=== PATIENT | male | born 1955 | race Caucasian/White ===

== ENCOUNTER 2020-12-25 09:04 | Outpatient (CLI) | payer MEDICARE, OTHER, SELFPAY ==
--- NOTE | ~2020-12-25 | CT_ITS ---
EXAMINATION: CT lung screening DATE: 12/25/2020 09:53 INDICATION: Personal history of nicotine dependence, prior smoker with 78 pack year history TECHNIQUE: Computed tomography (CT) of the chest was performed without intravenous contrast. The dose -length product (DLP) was 166.42 mGy-cm. 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 COMPARISON: None FINDINGS: There is moderate emphysema. No suspicious pulmonary nodules are identified. The lungs are free of acute opacities. There is no pleural effusion or pneumothorax. No pathologically enlarged tho racic lymph nodes are identified. The heart size is normal. Calcified coronary artery atherosclerosis is noted. Cysts of the liver measure up to 10 mm. There is a 2.5 cm cyst of the left kidney. There i s moderate thoracic spondylosis. IMPRESSION: 1. Lung-RADS category 1: Negative. Continue annual screening with noncontrast low-dose chest CT in 12 months. Reviewed, dictated and finalized at location A. IMPRESSION: 1. Lung-RADS category 1: Negative. Continue annual screening with noncontrast l ow-dose chest CT in 12 months.
--- NOTE | 2020-12-25 10:52 | ECHO_ITS ---
Patient Info Name: Kody Eden Age: 65 years : 1955 Gender: Male Ht: 72 in Wt: 168 lbs BSA: 1.97 m2 HR: 115 bpm BP: 130 / 79 mmHg Technical Quality: Fair Exam Date: 12/25/2020 11:03 AM Exam Location: [facility] Patient Status: Outpatient Admit Date: 12/25/2020 Staff Ordering Physician: Timothy Queen APRN Tomato Paste Maker: ENID Attending Provider: Timothy Queen APRN Referring Physician: Bret CRAWFORD; Exam Type: CA echo doppler color flow Study Info Indications R06.02 - Shortness of breath Complete two-dimensional, color flow and Doppler transthoracic echocardiogram is performed. Summary 1. Complete two-dimensional, color flow and Doppler transthoracic echocardiogram is performed. 2. Left ventricular systolic function is preserved, estimated at 50-55%. 3. Left ventricular chamber dimension is normal. 4. There is mildly increased left ventricular wall thickness. 5. The left ventricular diastolic function is grade I diastolic dysfunction. 6. E/e' 25 is elevated. 7. Left atrial chamber dimension is mildly enlarged. 8. There is moderate aortic valve sclerosis. 9. The mitral valve has moderately calcified annulus. 10. No pulmonary hypertension, estimated pulmonary arterial systolic pressure is 17 mmHg. Left Ventricle E/e' 25 is elevated. Left ventricular systolic function is preserved, estimated at 50-55%. Left ventricular chamber dimension is normal. There is mildly increased left ventricular wall thickness. The left ventricular diastolic function is grade I diastolic dysfunction. Right Ventricle Right ventricular chamber dimension is normal. Right ventricular systolic function is normal. Left Atria Left atrial chamber dimension is mildly enlarged. Right Atria Right atrial chamber dimension is normal. Aortic Valve The aortic valve is trileaflet. There is moderate aortic valve sclerosis. There is no aortic valve stenosis. There is no aortic valve regurgitation. Pulmonic Valve There is no pulmonic regurgitation. Mitral Valve The mitral valve has moderately calcified annulus. There is no mitral valve stenosis. There is no mitral valve regurgitation. Tricuspid Valve There is no tricuspid valve regurgitation. No pulmonary hypertension, estimated pulmonary arterial systolic pressure is 17 mmHg. Pericardium/Pleural There is no pericardial effusion. Inferior Vena Cava Normal inferior vena cava with >50% collapse upon inspiration consistent with normal right atrial pressure, 5 mmHg. Aorta The aortic root size at the sinus of Valsalva is normal. Left Ventricular Outflow Tract Name Value Normal LVOT 2D LVOT Diameter 2.2 cm LVOT Doppler LVOT Peak Gradient 7 mmHg LVOT Mean Gradient 4 mmHg LVOT VTI 26 cm LVOT VTI/AV VTI Ratio 1.3 LVOT Stroke Volume 99 ml LVOT CO 20.7 l/min LVOT CI 10.5 l/min/m2 Mitral Valve
== END 2020-12-25 09:05 | disposition home or self-care (01) ==
PROVIDERS: PCP Family Medicine; Visit Provider Nurse Practitioner Family
DX: Z12.2 Encounter for screening for malignant neoplasm of respiratory organs (principal); Z87.891 Personal history of nicotine dependence; R06.02 Shortness of breath; I35.1 Nonrheumatic aortic (valve) insufficiency
CPT/HCPCS: 71271; 93306

== ENCOUNTER 2020-12-29 08:35 | Inpatient (IN) | payer MEDICARE, OTHER, SELFPAY ==
[2020-12-29] VITALS (20 sets, daily range): BP systolic 104–137; BP diastolic 64–86; PULSE 62–128; RESP 16–32; TEMP 35.7–37; O2SAT 92–100; BMI 21.9
--- NOTE | ~2020-12-29 | XR_ITS ---
XR chest 1V portable DATE: 01/01/2021 05:46 INDICATION: Shortness of breath TECHNIQUE: Portable AP views on 01/01/2021 at 0535 hours COMPARISON: 12/29/2020 AP and lateral chest FINDINGS: Bilateral hyperinflation and relative flattening the diaphragm, consistent with COPD. No pulmonary consolidation. Probable nipple shadow overlying the left lower lung. No pleural effusion or pulmonary vascular congestion or pneumothorax. Normal heart size. Aortic calcification and mild tortuosity. No hilar or mediastinal enlargement is e vident. IMPRESSION: COPD Reviewed, dictated and finalized at location A. IMPRESSION: COPD
--- NOTE | ~2020-12-29 | US_ITS ---
EXAMINATION: US venous doppler [facility] DATE: 12/29/2020 09:59 INDICATION: Bilateral lower limb swelling TECHNIQUE: Hahn scale images without and with compression and Doppler images of the bilateral lower e xtremity veins were obtained. COMPARISON: None FINDINGS: The right common femoral vein, profunda femoral vein, femoral vein, popliteal vein, peroneal trunk, p osterior tibial veins, and greater saphenous vein are patent. The left common femoral vein, profunda femoral vein, femoral vein, popliteal vein, peroneal trunk, po sterior tibial veins, and greater saphenous vein are patent. IMPRESSION: 1. Patent bilateral lower extremity veins. No evidence of deep venous thrombosis. Reviewed, dictated and finalized at location B. IMPRESSION: 1. Patent bilateral lower extremity veins. No evidence of deep venous thrombosi s.
--- NOTE | ~2020-12-29 | XR_ITS ---
XR chest 2V DATE: 12/29/2020 09:19 INDICATION: Shortness of breath TECHNIQUE: AP and lateral views COMPARISON: 12/25/2020 CT lung screening 05/19/2017 two-view chest FINDINGS: There is bilateral hyperinflation and flattening of the diaphragm, consistent with COPD. Heart size is within normal limits. Rizwana B-lines are identified in the mid and lower lung zones, not present on 05/19/2017, suggesting possible pulmonary interstitial edema. No pulmonary consolidation is evident. The central pulmonary arteries appear prominent and taper rath er quickly, suggesting pulmonary hypertension. No hilar or mediastinal mass lesion or adenopathy is e vident. No pneumothorax. No pleural effusion is identified. IMPRESSION: COPD Bilateral Rizwana B-lines, fetus in possible pulmonary interstitial edema Reviewed, dictated and finalized at location A.
--- NOTE | 2020-12-29 09:02 | ECG_ITS ---
Measurements Intervals Foster Rate: 116 P: 79 NM: 134 QRS: 23 QRSD: 88 T: 86 QT: 344 QTc: 478 Interpretive Statements SINUS TACHYCARDIA ATRIAL COUPLET, ATRIAL AND VENTRICULAR PREMATURE COMPLEXES LOW QRS VOLTAGE IN PRECORDIAL LEADS CANNOT RULE OUT SEPTAL INFARCT, AGE INDETERMINATE BORDERLINE ST-T WAVE ABNORMALITY- HIGH LATERAL LEADS ABNORMAL ECG Electronically Signed On 12-29-2020 9:52:52 CDT by Reji Reina D.O.
[2020-12-29 09:30] LABS: Basophils Percent Auto 0.5 % (0.2-1.2); Eosinophils Absolute Auto 0.1 K/mm3 (0-0.3); Eosinophils Percent Auto 0.8 % (0-4.4); Hematocrit 39.9 % (42.0-52.0); Immature Granulocyte Absolute 0.04 K/mm3 (0.00-0.031); Immature Granulocyte Percent A 0.5 % (0-0.5); Lymphocytes Absolute Auto 0.75 K/mm3 (0.9-3.2); Lymphocytes Percent Auto 9.6 % (18.3-44.2); Mean Corpuscular HGB Conc 32.6 g/dl (32-36); Mean Corpuscular Hemoglobin 33.2 pg (26-34); Mean Corpuscular Volume 101.8 fl (80-100); Mean Platelet Volume 9.6 fl (7.4-10.4); Monocytes Absolute Auto 0.5 K/mm3 (0.1-0.6); Monocytes Percent Auto 6.6 % (2.6-8.5); Neutrophils Absolute Auto 6.4 K/mm3 (1.3-6.7); Platelet Count Result 226 k/mm3 (150-375); Red Blood Count 3.92 M/mm3 (4.6-6.20); Red Cell Distribution Width 14.7 % (11.5-14.5); White Blood Count 7.9 K/mm3 (4.5-10.0)
[2020-12-29 09:48] LABS: INR 0.9; Partial Thromboplastin Time 26.8 SECONDS (22.3-36.8); Prothrombin Time 11.6 Seconds (11.1-14.7)
[2020-12-29 09:49] LABS: Anion Gap 6 mmol/L (8-16); Blood Urea Nitrogen 16 mg/dL (9-20); Calcium 8.8 mg/dL (8.4-10.2); Carbon Dioxide 28 mmol/L (22-30); Chloride 97 mmol/L (98-107); Estimated CRCL calculation 63 ml/min; Estimated Glomerular Filt Rate > 60; Glucose 130 mg/dL (65-110); Potassium 3.4 mmol/L (3.4-5.0); Sodium 131 mmol/L (137-145)
[2020-12-29 09:51] LABS: D Dimer 0.41 ug/mL (<0.48)
[2020-12-29] MEDS: FUROSEMIDE INJ 40 MG/4 ML VIAL IV PUSH ×2 (10:01→20:51)
[2020-12-29 10:09] LABS: NT Pro B Type Natriuretic Pept 432 pg/mL (5-100); Troponin I 0.116 ng/mL (0.000-0.034)
[2020-12-29] MEDS: NICOTINE (*PBKC) 14 MG PATCH 1 PATCH TRANSDERM (10:33)
[2020-12-29] MEDS: LORazepam INJ (*CRX) 2 MG/ML VIAL 0.5 MG IV PUSH (10:33)
[2020-12-29] MEDS: NITROGLYCERIN OINTMENT 1 INCH DOSE 0.5 INCH TRANSDERM (10:33)
--- NOTE | 2020-12-29 11:13 | ED.GENADULT ---
HPI - General Adult General Chief complaint: Shortness of Breath/Dyspnea Stated complaint: SOB Time Seen by Provider: 12/29/20 09:10 Source: patient, RN notes reviewed and old records reviewed Mode of arrival: ambulatory Limitations: no limitations History of Present Illness HPI narrative: Patient is a 65-year-old male who presents to emergency department for evaluation of shortness of breath over the course of the last week noting that he is also developed leg swelling. Patient was under the thought that it may be related to the Flomax he was started on for his prostate in the last week. Patient had echocardiogram and noncontrast CT of the chest on . Patient on arrival today notes that he has had episodes of feeling dyspneic and anxious during the course of the week and is unsure as to the leg swelling denies similar occurrence in the past. Patient denies any chest pain. Patient notes history of COPD and is an active smoker he has been using his inhaler more often and his nebulizer over the course of the last week denies any acute URI symptoms notes chronic smoker's cough at this time he is followed by primary care and pulmonology Related Data Home Medications Medication Instructions Recorded Confirmed cilostazol 100 mg tablet 100 mg PO BID 07/27/19 12/20/20 clopidogrel 75 mg tablet 75 mg PO DAILY 07/27/19 12/20/20 tamsulosin 0.4 mg capsule 0.4 mg PO BID cap 12/04/20 12/20/20 Allergies Allergy/AdvReac Type Severity Reaction Status Date / Time aspirin Allergy Unknown Unknown Verified 12/18/20 10:39 caffeine Allergy Unknown Unknown Verified 12/18/20 10:39 codeine AdvReac Unknown Nausea Verified 12/29/20 09:41 Review of Systems Review of Systems: All systems reviewed & are unremarkable except as noted in HPI and below PMFSH Past Medical History Medical History Allergies BMI 23.0-23.9, adult PAD (peripheral artery disease) s/p stent Family History Family History Mother Acute myocardial infarction, Onset Age: 74 Patient's mother is Family history of heart disease in male family member before age 55 Hypertension, Onset Age: 74 Father Cerebrovascular accident, Onset Age: 60 Patient's father is Family history of congestive heart failure, Onset Age: 60 Other Diabetes mellitus Family history of lung cancer Social History Social History Smoking packs per day: 0.25 Smoking cigarettes per day: 5.0 Years smoked: 50 Smoking pack-years: 12.50 Smoking status: Current every day smoker Tobacco type: cigarettes Second hand tobacco smoke exposure: No Alcohol intake: former Substance use: current Substance use type: marijuana Gender identity (if verbalized by the patient): Male Exam Narrative: GENERAL: Well-appearing, well-nourished, and in no acute distress. HEAD: Normocephalic, atraumatic. EYES: PERRLA and EOMI. ENT: Nares clear, no rhinorrhea or epistaxis. Mucous membranes moist. NECK: Supple. No adenopathy or masses. No carotid bruits or JVD CHEST: Diminished on auscultation. No respiratory distress. No wheezes rales or rhonchi HEART: Regular rate and rhythm. No murmur heard. Normal peripheral pulses. ABDOMEN: Soft, nontender, nondistended. EXTREMITIES: Normal range of motion. 4+ edema lower extremities SKIN: Warm, dry, no rash. NEURO: No focal deficits. Alert and oriented x3. Cranial nerves II through XII grossly intact PSYCH: Normal mood and affect. Course Course Emergency Course: Patient evaluated the emergency department treated for COPD and congestive heart failure was given Lasix placed on BiPAP denying any chest pain will be placed in the IMCU given his elevated troponins for continued evaluation patient hemodynamically stable at this time. Patient bob
[2020-12-29 12:11] LABS: Alveolar/Arterial O2 Gradient 95.1 mmHg; Base Excess ABG 2.3 mEq/l (+/-2.0); Carboxyhemoglobin 2.4 % THb (0-2.0); Fractional Inspired Oxygen 28 %; HCO3 ABG 25.6 mEq/l (22.0-26.0); Methemoglobin ABG 0.1 %THb (0-1.5); Modified Allen's Test Pass; Oxygen Content ABG 18.7 %vol (16.0-22.0); Oxygen Saturation ABG 93.5 % (95.0-100.0); Oxyhemoglobin 89.4 % THb (90.0-100.0); PCO2 ABG 35.6 mmHg (35.0-45.0); PO2 ABG 62.5 mmHg (80.0-100.0); PO2 FiO2 Ratio Arterial Blood 2.23 %; Reduced Hemoglobin 8.1 %THb (0-5.0); Site Drawn RIGHT RADIAL; Total Hemoglobin 14.9 g/dL (12.0-18.0); pH ABG 7.474 (7.350-7.450)
[2020-12-29 12:12] LABS: Device NASAL CANNULA
[2020-12-29 13:25] LABS: Troponin I 0.103 ng/mL (0.000-0.034)
--- NOTE | 2020-12-29 13:30 | PM.IMHP ---
H&P: HPI History of Present Illness Date/Time: 12/29/20 13:30 Chief Complaint: Shortness of breath. Narrative: This is a 65-year-old male smoker with COPD and hypertension who presented to the emergency department earlier today for evaluation of shortness of breath. At the time my evaluation he has recently received Ativan due to significant anxiety and is quite somnolent while on the BiPAP. Although he is arousable he does not provide a good history. As such a majority of the following is obtained via a review of electronic medical records as well as discussions with his significant of 25 years, Ban, who was at bedside with the patient's permission. The patient has smoked upwards of 4 packs of cigarettes per day for many years though he has been trying to cut back and according to Ban he is only smoking 10 cigarettes a day now. He has been having progressive issues with shortness of breath over the years and in fact had a chest CT and echocardiogram done recently for evaluation of the same showed moderate emphysema and grade 1 diastolic dysfunction respectively. The last couple of weeks he has felt progressively more short of breath on lesser and lesser exertion and has developed pretty significant lower extremity edema which is completely new for him. It sounds like he has had significant orthopnea the past week and Ban tells me he has not been sleeping well, perhaps 4 hours a night. When he is particularly short of breath he will stand on the stairs and lean over the railing to help himself breathe. They decided to come in today as he got no relief with his inhalers and nebulizers. Chest x-ray demonstrated bilateral Rizwana B lines and possible pulmonary interstitial edema though his BNP was only mildly elevated at 432. D-dimer was negative however lower extremity venous Doppler ultrasounds were obtained given significant swelling which were negative for DVT. Due to high anxiety with his shortness of breath and work of breathing he was started on BiPAP though his ABGs have been pretty unremarkable. He feels a bit more comfortable now and is off BiPAP, and reports that he has urinated quite a bit. He still feels wheezy and will get anxious when he is short of breath. He denies fever and chills though he does get sweats when he is feeling short of breath. No cold or flu symptoms. No known exposure to those positive for COVID-19. He completed the COVID vaccination series in early September. No chest pain, pleuritic pain, or palpitations. He has not had nausea or vomiting. Review of Systems Review of Systems: Twelve systems were reviewed with pertinent positives and negatives as per HPI. Weight has remained stable. No dysphagia or concerns for aspiration. He has not had nausea or vomiting. No diarrhea. No dysuria. No issues with urinary retention. No recent issues with claudication. He recently saw his vascular surgeon had arterial Dopplers, within the last month, and they reportedly unremarkable. At that time they mentioned that he may have an underlying irregular heart rhythm however he has not had that worked up. He has no known history of atrial fibrillation. Except as documented, all other systems were reviewed and are negative. [facility] Past Medical History Medical History (Updated 12/29/20 @ 20:51 by Orquidea Torres PA-C) Benign prostatic hyperplasia Chronic obstructive pulmonary disease Diastolic congestive heart failure Echocardiogram on 12/25/2020 showed normal left ventricular systolic function with an EF of 50 to 55% and grade 1 diastolic dysfunction. Hyperlipidemia Hypertension Peripheral arterial disease Status post left lower extremity thrombectomy and stent. Tobacco abuse Surgical History Surgical History History of arthroscopy of left knee History of vascular surgery Left lower extremity thrombectomy and stent. Family History Family History (Reviewed 12/29/20 @ 20:43 by Orquidea Goodwin
[2020-12-29] MEDS: LORazepam INJ (*CRX) 2 MG/ML VIAL 1 MG IV PUSH (13:42)
[2020-12-29 15:36] LABS: Alveolar/Arterial O2 Gradient 92.7 mmHg; Base Excess ABG 2.2 mEq/l (+/-2.0); Carboxyhemoglobin 1.7 % THb (0-2.0); Fractional Inspired Oxygen 35 %; Methemoglobin ABG 0.1 %THb (0-1.5); Modified Allen's Test Unable to perform; Oxygen Content ABG 19.1 %vol (16.0-22.0); Oxyhemoglobin 95.7 % THb (90.0-100.0); PCO2 ABG 42.9 mmHg (35.0-45.0); PO2 FiO2 Ratio Arterial Blood 3.06 %; Reduced Hemoglobin 2.5 %THb (0-5.0); Site Drawn RIGHT RADIAL; Total Hemoglobin 14.1 g/dL (12.0-18.0); pH ABG 7.417 (7.350-7.450)
[2020-12-29 15:37] LABS: Device NON-INVASIVE VENT; Non-Invasive Expiratory Pressure 8 CMH2O; Non-Invasive Inspiratory Pressure 14 CMH2O; Non-Invasive Vent Rate 10 /MIN
[2020-12-29 16:14] LABS: Troponin I 0.089 ng/mL (0.000-0.034)
--- NOTE | 2020-12-29 16:30 | ADMGEN ---
This patient, Kody Eden, was admitted to IMU Room 214-01. Patient/family oriented to hospital policies and general routines including ID bracelet, bed and alarms, visiting hours, pain management, procedures, bathroom and other care routines, personal items, smoking policy, room service/diet, and visiting hours. Information on how to activate the Rapid Response Team has been discussed. Patient/Family are encouraged to report perceived risks to care and to ask questions if they do not understand what they are told or what they should do.
[2020-12-29] MEDS: LEVALBUTEROL NEB 1.25 MG/3 ML 0.63 MG INHALATION (20:40)
[2020-12-29] MEDS: IPRATROPIUM BR 0.02% INH SOLN 0.5 MG/2.5 ML VIAL INHALATION (20:40)
[2020-12-29] MEDS: FAMOTIDINE 20 MG/2 ML VIAL IV PUSH (20:51)
[2020-12-29] MEDS: methylPREDNISolone SOD SUCC 125 MG VIAL IV PUSH (20:51)
[2020-12-29 21:41] LABS: Alanine Aminotransferase 53 U/L (4-50); Albumin Level 3.4 g/dL (3.5-5.1); Alkaline Phosphatase 60 U/L (38-126); Anion Gap 7 mmol/L (8-16); Aspartate Amino Transferase 46 U/L (17-59); Bilirubin,Total 0.7 mg/dL (0.2-1.3); Blood Urea Nitrogen 19 mg/dL (9-20); Calcium 9.1 mg/dL (8.4-10.2); Carbon Dioxide 30 mmol/L (22-30); Chloride 95 mmol/L (98-107); Estimated CRCL calculation 66 ml/min; Estimated Glomerular Filt Rate > 60; Glucose 153 mg/dL (65-110); Potassium 3.8 mmol/L (3.4-5.0); Sodium 132 mmol/L (137-145)
[2020-12-29 22:00] LABS: Troponin I 0.106 ng/mL (0.000-0.034)
[2020-12-29] MEDS: busPIRone HCL 2.5 MG, busPIRone HCL 5 MG 7.5 MG PO (23:26)
[2020-12-30] VITALS (23 sets, daily range): BP systolic 88–150; BP diastolic 46–94; PULSE 100–129; RESP 18–28; TEMP 36.1–36.7; O2SAT 86–99
--- NOTE | 2020-12-30 | ECHO_ITS ---
Patient Info Name: Kody Eden Age: 65 years : 1955 Gender: Male Ht: 72 in Wt: 161 lbs BSA: 1.92 m2 HR: 90 bpm Exam Date: 12/30/2020 9:10 AM Exam Location: [facility] Patient Status: Inpatient Admit Date: 12/29/2020 Staff Ordering Physician: Orquidea Torres PA-C Parts Cataloguer: Trent Hogan RDCS, RT Attending Provider: Aries Barfield DO Referring Physician: Brian BAIRD; Exam Type: CA echo limited Study Info Indications I50.9 - Heart failure, unspecified Limited two-dimensional transthoracic echocardiogram is performed. Summary 1. Limited echocardiogram to assess for wall motion abnormalities. 2. Definity contrast administered improved wall motion interpretation. 3. Left ventricular chamber dimension is normal. 4. Left ventricular systolic function is normal, estimated at 60-65%. 5. There is moderately increased left ventricular wall thickness. 6. The left ventricular diastolic function is grade I diastolic dysfunction. 7. There is moderate aortic valve stenosis based on a peak velocity of 278 cm/s, mean gradient of 8 mmHg, and aortic valve area of 1.2 cm2. Left Ventricle Definity contrast administered improved wall motion interpretation. Limited echocardiogram to assess for wall motion abnormalities. Tissue doppler is not performed. Left ventricular chamber dimension is normal. Left ventricular systolic function is normal, estimated at 60-65%. There is moderately increased left ventricular wall thickness. The left ventricular diastolic function is grade I diastolic dysfunction. Aortic Valve The aortic valve is not well visualized as this is a limited study.. There is moderate aortic valve stenosis based on a peak velocity of 278 cm/s, mean gradient of 8 mmHg, and aortic valve area of 1.2 cm2. There is no aortic valve regurgitation. Left Ventricular Outflow Tract Name Value Normal LVOT 2D LVOT Diameter 2.0 cm LVOT Doppler LVOT Peak Gradient 2 mmHg LVOT Mean Gradient 1 mmHg LVOT VTI 21 cm LVOT VTI/AV VTI Ratio 0.4 LVOT Stroke Volume 66 ml LVOT CO 10.1 l/min LVOT CI 5.2 l/min/m2 Mitral Valve Name Value Normal MV Doppler MV Peak Gradient 15 mmHg MV Mean Gradient 6 mmHg MV Area (Cont Eq VTI) 1.9 cm2 Tricuspid Valve Name Value Normal TV Regurgitation Doppler TR Peak Velocity 263 cm/s TR Peak Gradient
[2020-12-30 01:32] LABS: Thyroid Stimulating Hormone Reflex 0.872 uIU/mL (0.465-4.68)
[2020-12-30] MEDS: IPRATROPIUM BR 0.02% INH SOLN 0.5 MG/2.5 ML VIAL INHALATION ×4 (01:56→20:44)
[2020-12-30] MEDS: LEVALBUTEROL NEB 1.25 MG/3 ML 0.63 MG INHALATION ×4 (01:57→20:43)
[2020-12-30 05:50] LABS: Basophils Percent Auto 0.2 % (0.2-1.2); Hematocrit 42.4 % (42.0-52.0); Hemoglobin 13.8 g/dL (14.0-18.0); Immature Granulocyte Absolute 0.02 K/mm3 (0.00-0.031); Immature Granulocyte Percent A 0.4 % (0-0.5); Lymphocytes Absolute Auto 0.21 K/mm3 (0.9-3.2); Mean Corpuscular HGB Conc 32.5 g/dl (32-36); Mean Corpuscular Hemoglobin 33.4 pg (26-34); Mean Corpuscular Volume 102.7 fl (80-100); Mean Platelet Volume 9.8 fl (7.4-10.4); Monocytes Absolute Auto 0.1 K/mm3 (0.1-0.6); Monocytes Percent Auto 1.9 % (2.6-8.5); Neutrophils Percent Auto 93.5 % (45.5-73.1); Platelet Count Result 249 k/mm3 (150-375); Red Blood Count 4.13 M/mm3 (4.6-6.20); Red Cell Distribution Width 14.7 % (11.5-14.5); White Blood Count 5.3 K/mm3 (4.5-10.0)
[2020-12-30 05:53] LABS: Alanine Aminotransferase 50 U/L (4-50); Albumin Level 3.4 g/dL (3.5-5.1); Alkaline Phosphatase 60 U/L (38-126); Anion Gap 8 mmol/L (8-16); Aspartate Amino Transferase 42 U/L (17-59); Bilirubin,Total 0.6 mg/dL (0.2-1.3); Blood Urea Nitrogen 21 mg/dL (9-20); Calcium 9.1 mg/dL (8.4-10.2); Carbon Dioxide 30 mmol/L (22-30); Chloride 92 mmol/L (98-107); Estimated CRCL calculation 66 ml/min; Estimated Glomerular Filt Rate > 60; Glucose 147 mg/dL (65-110); Potassium 4.1 mmol/L (3.4-5.0); Sodium 130 mmol/L (137-145)
[2020-12-30] MEDS: cilostazoL 100 MG TABLET PO ×2 (06:03→16:07)
[2020-12-30] MEDS: OPTI-GEN TAB 1 TABLET PO (08:30)
[2020-12-30] MEDS: CLOPIDOGREL BISULFATE 75 MG TABLET PO (08:30)
[2020-12-30] MEDS: lisinopriL 10 MG TABLET PO (08:30)
[2020-12-30] MEDS: FUROSEMIDE INJ 40 MG/4 ML VIAL IV PUSH (08:31)
[2020-12-30] MEDS: FAMOTIDINE 20 MG TABLET PO ×2 (08:31→21:14)
[2020-12-30] MEDS: TAMSULOSIN HCL 0.4 MG CAPSULE PO ×2 (08:31→16:07)
[2020-12-30] MEDS: SIMVASTATIN 20 MG TABLET 40 MG PO (08:31)
[2020-12-30] MEDS: busPIRone HCL 2.5 MG, busPIRone HCL 5 MG 7.5 MG PO ×2 (08:31→21:14)
[2020-12-30] MEDS: predniSONE 20 MG TABLET 40 MG PO (08:31)
[2020-12-30] MEDS: PERFLUTREN LIPID MICROSPHERES 1.5 ML VIAL DILUTED TO 10 ML TOTAL VOLUME IV PUSH (09:25)
[2020-12-30] MEDS: NICOTINE (*PBKC) 21 MG PATCH 1 PATCH TRANSDERM (12:58)
--- NOTE | 2020-12-30 12:59 | PM.CNCAR ---
Assessment and Plan Assessment and plan (1) Elevated troponin: Code(s): R77.8 - Other specified abnormalities of plasma proteins Status: Acute Assessment and Plan: Mild troponin elevation with flat curve not acute coronary syndrome and/or plaque rupture type 2 infarction. EF preserved moderate LVH. no clear anginal symptoms, no acute ischemic EKG changes at presentation. Can't exclude septal NM. Would recommend ischemic evaluation Lexiscan once patient is stabilized from a respiratory perspective likely as an outpatient. If any new or concerning symptoms while hospitalized discussed coronary angiography, however, troponin trends not consistent with acute myocardial infarction, EF preserved without regional wall motion abnormality. Discussed at great length with the patient and his at bedside presentation predominantly related to acute on chronic respiratory failure with COPD exacerbation as well as component of new heart failure. Initial concern for possible LV dysfunction given persistent tachycardia although preserved LV function by echo 12/25/2020 EF 50-55% and in fact improved on repeat limited study today EF 60-65%. (2) Diastolic congestive heart failure: Code(s): I50.30 - Unspecified diastolic (congestive) heart failure Status: Acute Assessment and Plan: Moderate LVH By echocardiogram. Acute, new onset heart failure with preserved ejection fraction EF 60-65% On limited echo for today, 50-55% 12/25/2020 echocardiogram. no aortic stenosis on echo 12/25/2020 previous notation of [id number] aortic stenosis 2017. Most likely secondary to hypoxic respiratory failure. No clear anginal symptoms although given PAD history and risk factors can't exclude underlying coronary artery disease. Lasix IV 40 mg b.i.d., monitor renal function, electrolytes closely. (3) COPD exacerbation: Code(s): J44.1 - Chronic obstructive pulmonary disease with (acute) exacerbation Status: Acute Assessment and Plan: acute on chronic hypoxic respiratory failure. Severe COPD. Patient has been treating himself with prednisone for many years without doctor's orders. Still smoking with cutting down was up to 4-1/2 packs per day cigarettes. (4) Peripheral arterial disease: Code(s): I73.9 - Peripheral vascular disease, unspecified Status: Chronic Assessment and Plan: 04/13/2019 status post aortogram, left external iliac artery 9 x 40 mm Protege. stent placement, attempted left above knee popliteal arterial recanalization. He remains on cilostazol and clopidogrel. Increased risk for coronary artery disease all known no prior diagnosis or known coronary disease thus far. (5) Hypertension: Code(s): I10 - Essential (primary) hypertension Status: Acute Assessment and Plan: Fair control overall. Continue antihypertensives. (6) Hyperlipidemia: Code(s): E78.5 - Hyperlipidemia, unspecified Status: Acute Assessment and Plan: Continue simvastatin. Goal LDL less than 70. (7) Tobacco abuse: Code(s): Z72.0 - Tobacco use Status: Acute Assessment and Plan: Smoking cessation counseling performed extensively. History of Present Illness History of Present Illness Consult date/time: Date of service:12/30/20 12:59 Cardiology consultation at the request of Orquidea Torres of the [facility] service for opinion regarding Shortness of breath and elevated troponin. Requesting physician: Orquidea Torres PADiana Consult reason: congestive heart failure and Other ( Elevated troponin) Reason For Visit: COPD exacerbation/CHF exacerbation/elevated tropon Narrative: Patient is a pleasant 65-year-old male with past medical history significant for COPD, heavy tobacco abuse, hypertension, peripheral arterial disease status post intervention, dyslipidemia who presented to the emergency department with severe progressive shortness
--- NOTE | 2020-12-30 17:20 | P.PNIM_ITS ---
Progress Note: A&P Assessment and Plan (1) COPD exacerbation: Code(s): J44.1 - Chronic obstructive pulmonary disease with (acute) exacerbation Status: Acute Assessment and Plan: * He has been started on scheduled bronchodilators. * No indication for antibiotics. * Solumdrol 40mg IV BID will be started * Seems to be a mix of COPD and CHF exacerbation. * Will hold off on antibiotics for now * WBC are 5.3 * trend labs * Supplement oxygen * Wean oxygen to maintain a saturation of >90% * Pulmonology consulted thank you for your recommandations (2) Diastolic congestive heart failure: Code(s): I50.30 - Unspecified diastolic (congestive) heart failure Status: Acute Assessment and Plan: * Chest x-ray today shows Rizwana B lines and possible pulmonary edema. * Given his marked lower extremity edema and orthopnea, * diuresed with close monitoring of volume status and renal function. * IV furosemide 40mg PO BID * Cardiology consult thank you * Fluid restriction 1500ml daily (3) Elevated troponin: Code(s): R77.8 - Other specified abnormalities of plasma proteins Status: Acute Assessment and Plan: * He is not having chest pain and likely this is related to CHF though will trend troponins to peak. * Echo just done on 12/25/20-EF 50-55% with grade 1 diastolic dysfunction * Cardiology consult thank you for recommendations (4) Hypertension: Code(s): I10 - Essential (primary) hypertension Status: Acute Assessment and Plan: * Current blood pressure is 90/53 * Blood pressures reviewed and they are stable. * Hold lisinopril for now due to hypotension * Will probably be controlled with lasix (5) Benign prostatic hyperplasia: Code(s): N40.0 - Benign prostatic hyperplasia without lower urinary tract symptoms Status: Acute Assessment and Plan: Continue tamsulosin. (6) Hyperlipidemia: Code(s): E78.5 - Hyperlipidemia, unspecified Status: Acute Assessment and Plan: Continue statin and check LFTs. (7) Peripheral arterial disease: Code(s): I73.9 - Peripheral vascular disease, unspecified Status: Chronic Assessment and Plan: * Patient has two stents that were placed * No acute issues. Continue clopidogrel. Time Spent With Patient Time with patient: Greater than 35 minutes Subjective Date/time seen: 12/30/20 16:14 Interval history: Patient is 65-year-old male with a past medical history of COPD, hypertension, anxiety who presented the hospital with shortness of breath. Patient stated that he still feels the same today however he did notice that the swelling is going away in his bilateral lower extremities. Patient also claims to have a cough which is very what however he stating that he is not getting anything up with a cough. He is stating that he does take a Claritin D every 12 hours at home. He stated that he is also very tired. He is also stating that he is short of breath and that he does notice that he is more short of breath with activity and that he is doing well with breathing treatments. Patient does not have home O2 or wears CPAP at home. Patient denies chest pain, sweats, fevers, chills, nausea, vomiting. I did have a conversation with his and him about his current condition. Jerald yaakovadrian also was seen by cardiology today due to elevated tropes and fluid overload. Patient did state that this is all new with his lower leg extremity edema. His is concerned because he had recently seen Timothy
--- NOTE | 2020-12-30 17:20 | PM.IMPN ---
Progress Note: A&P Assessment and Plan (1) COPD exacerbation: Code(s): J44.1 - Chronic obstructive pulmonary disease with (acute) exacerbation Status: Acute Assessment and Plan: He has been started on scheduled bronchodilators. No indication for antibiotics. Solumdrol 40mg IV BID will be started Seems to be a mix of COPD and CHF exacerbation. Will hold off on antibiotics for now WBC are 5.3 trend labs Supplement oxygen Wean oxygen to maintain a saturation of >90% Pulmonology consulted thank you for your recommandations (2) Diastolic congestive heart failure: Code(s): I50.30 - Unspecified diastolic (congestive) heart failure Status: Acute Assessment and Plan: Chest x-ray today shows Rizwana B lines and possible pulmonary edema. Given his marked lower extremity edema and orthopnea, diuresed with close monitoring of volume status and renal function. IV furosemide 40mg PO BID Cardiology consult thank you Fluid restriction 1500ml daily (3) Elevated troponin: Code(s): R77.8 - Other specified abnormalities of plasma proteins Status: Acute Assessment and Plan: He is not having chest pain and likely this is related to CHF though will trend troponins to peak. Echo just done on 12/25/20-EF 50-55% with grade 1 diastolic dysfunction Cardiology consult thank you for recommendations (4) Hypertension: Code(s): I10 - Essential (primary) hypertension Status: Acute Assessment and Plan: Current blood pressure is 90/53 Blood pressures reviewed and they are stable. Hold lisinopril for now due to hypotension Will probably be controlled with lasix (5) Benign prostatic hyperplasia: Code(s): N40.0 - Benign prostatic hyperplasia without lower urinary tract symptoms Status: Acute Assessment and Plan: Continue tamsulosin. (6) Hyperlipidemia: Code(s): E78.5 - Hyperlipidemia, unspecified Status: Acute Assessment and Plan: Continue statin and check LFTs. (7) Peripheral arterial disease: Code(s): I73.9 - Peripheral vascular disease, unspecified Status: Chronic Assessment and Plan: Patient has two stents that were placed No acute issues. Continue clopidogrel. Time Spent With Patient Time with patient: Greater than 35 minutes Subjective Date/time seen: 12/30/20 16:14 Interval history: Patient is 65-year-old male with a past medical history of COPD, hypertension, anxiety who presented the hospital with shortness of breath. Patient stated that he still feels the same today however he did notice that the swelling is going away in his bilateral lower extremities. Patient also claims to have a cough which is very what however he stating that he is not getting anything up with a cough. He is stating that he does take a Claritin D every 12 hours at home. He stated that he is also very tired. He is also stating that he is short of breath and that he does notice that he is more short of breath with activity and that he is doing well with breathing treatments. Patient does not have home O2 or wears CPAP at home. Patient denies chest pain, sweats, fevers, chills, nausea, vomiting. I did have a conversation with his and him about his current condition. Patient also was seen by cardiology today due to elevated tropes and fluid overload. Patient did state that this is all new with his lower leg extremity edema. His is concerned because he had recently seen Timothy Queen in the office. At that time Timothy had ordered a chest CT and an echo. I also explained to the patient's about the use of the CPAP and that he needs to quit smoking. I updated them about the plan of care all of them agreed all questions were answered. Review of Systems Review of Systems: All systems reviewed & are unremarkable except as noted in HPI and below Exam Const: General: cooperativ
[2020-12-30] MEDS: LORATADINE/PSEUDOEPHEDRINE (*CRX) 10/240 MG TABLET ER 24 HR 1 TAB PO (21:22)
--- NOTE | 2020-12-30 21:44 | PM.CNPUL ---
Assessment and Plan Assessment and plan (1) COPD exacerbation: Code(s): J44.1 - Chronic obstructive pulmonary disease with (acute) exacerbation Status: Acute Assessment and Plan: Acute exacerbation of COPD with probable chronic hypoxemia, right heart failure which is acute on chronic and ongoing smoking. Chart indicates that he has been treating himself with prednisone without a doctor's supervision. He describes getting worse after changing from Tudorza to Incruse. He appears to be at end stage of COPD, and can no longer smoke and still breathe. Plan will be to treat with steroids, bronchodilators, help him get through tobacco withdrawal and make plans to remain tobacco free. He has no reserve. Will need evaluation for O2 before discharge. He says that his saturation is in the 90% range at home. With smoking, pulse oximeter can show falsely elevated saturation as it measure the hemoglobin saturation and carboxyhemoglobin saturation from tobacco smoking. Has sputum production most days, and is a candidate for Daliresp ( roflumilast) which needs prior authorization. He has anxiety when he has difficulty breathing. This is common to see, and he is on buspirone 7.5 mg BID. I increased this to 10 mg BID and added Ativan 0.5 mg po Q 6 hours p.r.n. shortness of breath. He may be better managed with SSRI than benzodiazepine for controlling anxiety. Continue nebulized brochodilators and steroids. (2) Tobacco abuse: Code(s): Z72.0 - Tobacco use Status: Acute Assessment and Plan: duration of 50 years, up to 3 ppd, was at less than 0.5 ppd at this admission; has never had a tobacco cessation attempt before Nicotine patch, gum; he needs help while he is here to plan how he will stay off tobacco at discharge; this is critical to his survival (3) Right heart failure: Code(s): I50.810 - Right heart failure, unspecified Status: Acute Assessment and Plan: Acute on chronic; needs some evaluation of sleep to assure that he does not have MIKE as a contributing factor; echo results pending; treatment will be aimed at tobacco cessation, management of COPD, cardiopulmonary rehab. (4) Hypoxemia: Code(s): R09.02 - Hypoxemia Status: Acute Assessment and Plan: Was not on supplemental O2 at admission; will need evaluation prior to discharge. History of Present Illness History of Present Illness Consult date: 12/30/20 Chief complaint: COPD exacerbation/CHF exacerbation/elevated tropon Narrative: NEW: Kody Eden is a 65 year old man admitted 2 days ago with extreme shortness of breath and anxiety, has COPD diagnosed 9 years ago, continues to smoke 8-10 cigarettes a day. He was seen in our office in October as a new patient, was followed by Dr Noble in the past. Due to increase anxiety and panic attacks, he was started on buspirone 7.5 mg BID. He smoked for 50 years, at most 3 ppd, and never has had a quit attempt. He was unable to continue to use Tudorza due to change in his insurance coverage, so was changed to Incruse which did not seem to be as effective. He has had intermittent coughing with sputum production, daily wheezing, and decreased exercise tolerance. He does not wake at night due to shortness of breath or wheezing, however only sleeps a few hours at a time before waking. He naps in the day. In September, he noticed increased lower extremity swelling and more shortness of breath with less activity, just a shower or short distanced walked. He has had episodes of incontinence of urine associated with panic attacks and shortness of breath. He has never been on supplemental O2. He uses an oximeter at home, notes that his saturation is 92-95% on RA. He n
[2020-12-30] MEDS: LORazepam (*CRX) 0.5 MG TABLET PO (22:26)
[2020-12-31] VITALS (19 sets, daily range): BP systolic 89–109; BP diastolic 49–77; PULSE 76–126; RESP 16–24; TEMP 36.2–36.9; O2SAT 91–97
[2020-12-31] MEDS: LORazepam (*CRX) 0.5 MG TABLET PO ×3 (05:02→18:39)
[2020-12-31] MEDS: cilostazoL 100 MG TABLET PO ×2 (05:02→17:26)
[2020-12-31 05:06] LABS: Hemoglobin 13.7 g/dL (14.0-18.0); Mean Corpuscular HGB Conc 33.4 g/dl (32-36); Mean Corpuscular Volume 98.8 fl (80-100); Mean Platelet Volume 9.4 fl (7.4-10.4); Platelet Count Result 311 k/mm3 (150-375); Red Blood Count 4.15 M/mm3 (4.6-6.20); Red Cell Distribution Width 14.6 % (11.5-14.5); White Blood Count 12.9 K/mm3 (4.5-10.0)
[2020-12-31 05:37] LABS: Alanine Aminotransferase 50 U/L (4-50); Albumin Level 3.3 g/dL (3.5-5.1); Alkaline Phosphatase 58 U/L (38-126); Anion Gap 7 mmol/L (8-16); Aspartate Amino Transferase 46 U/L (17-59); Bilirubin,Total 0.6 mg/dL (0.2-1.3); Blood Urea Nitrogen 42 mg/dL (9-20); Carbon Dioxide 30 mmol/L (22-30); Chloride 91 mmol/L (98-107); Estimated CRCL calculation 66 ml/min; Estimated Glomerular Filt Rate > 60; Glucose 132 mg/dL (65-110); Magnesium 2.2 mg/dL (1.6-2.3); Potassium 4.1 mmol/L (3.4-5.0); Sodium 128 mmol/L (137-145)
[2020-12-31] MEDS: IPRATROPIUM BR 0.02% INH SOLN 0.5 MG/2.5 ML VIAL INHALATION ×3 (08:03→21:52)
[2020-12-31] MEDS: LEVALBUTEROL NEB 1.25 MG/3 ML 0.63 MG INHALATION ×3 (08:04→21:52)
[2020-12-31] MEDS: SIMVASTATIN 20 MG TABLET 40 MG PO (09:00)
[2020-12-31] MEDS: OPTI-GEN TAB 1 TABLET PO (09:00)
[2020-12-31] MEDS: TAMSULOSIN HCL 0.4 MG CAPSULE PO ×2 (09:00→17:26)
[2020-12-31] MEDS: busPIRone HCL 10 MG TABLET PO ×2 (09:01→20:28)
[2020-12-31] MEDS: FAMOTIDINE 20 MG TABLET PO ×2 (09:01→20:28)
[2020-12-31] MEDS: predniSONE 20 MG TABLET 40 MG PO (09:01)
[2020-12-31] MEDS: CLOPIDOGREL BISULFATE 75 MG TABLET PO (09:01)
[2020-12-31] MEDS: NICOTINE (*PBKC) 21 MG PATCH 1 PATCH TRANSDERM (09:01)
[2020-12-31] MEDS: NICOTINE (*PBKC) 4 MG GUM PO ×3 (09:06→17:26)
--- NOTE | 2020-12-31 10:56 | PM.PNCARD ---
Progress Note: A&P Assessment and Plan (1) Elevated troponin: Code(s): R77.8 - Other specified abnormalities of plasma proteins Status: Acute Assessment and Plan: Mild troponin elevation with flat curve not consistent with acute coronary syndrome and/or plaque rupture but likely type 2 infarction. EF preserved moderate LVH. no clear anginal symptoms, no acute ischemic EKG changes at presentation. -given peripheral arterial disease status post intervention high likelihood concordance of coronary atherosclerosis. Discussed outpatient ischemic evaluation when stable. Patient agrees. Discussed at great length with the patient and his at bedside presentation predominantly related to acute on chronic respiratory failure with COPD exacerbation as well as component of new heart failure. Initial concern for possible LV dysfunction given persistent tachycardia although preserved LV function by echo 12/25/2020 EF 50-55% and in fact improved on repeat limited study today EF 60-65%. Patient should follow with me as an outpatient for further guidance and recommendations in this regard. Patient verbalized understanding. (2) COPD exacerbation: Code(s): J44.1 - Chronic obstructive pulmonary disease with (acute) exacerbation Status: Acute Assessment and Plan: acute on chronic hypoxic respiratory failure. Severe COPD. Patient has been treating himself with prednisone for many years without doctor's orders. Still smoking with cutting down was up to 4-1/2 packs per day cigarettes. (3) Acute exacerbation of CHF (congestive heart failure): Code(s): I50.9 - Heart failure, unspecified Status: Acute Assessment and Plan: Moderate LVH By echocardiogram. Acute, new onset heart failure with preserved ejection fraction EF 60-65% On limited echo for today, 50-55% 12/25/2020 echocardiogram. no aortic stenosis on echo 12/25/2020 previous notation of [id number] aortic stenosis 2017. Most likely secondary to hypoxic respiratory failure. No clear anginal symptoms although given PAD history and risk factors can't exclude underlying coronary artery disease. Mostly right-sided heart failure symptoms although cannot exclude diastolic etiology. Does not appear to be consistent with cor pulmonale with normal pulmonary pressures and preserved RV size/function. He appears to be prerenal by laboratory studies with decline in reported urine output. Recommend transition to oral Lasix 40 mg p.o. daily. Monitor renal function. (4) Peripheral arterial disease: Code(s): I73.9 - Peripheral vascular disease, unspecified Status: Chronic Assessment and Plan: 04/13/2019 status post aortogram, left external iliac artery 9 x 40 mm Protege. stent placement, attempted left above knee popliteal arterial recanalization. Continue Cilostazol and Clopidogrel. Increased risk for coronary artery disease but no prior diagnosis. He follows with Dr. Reardon [facility] in this regard. Check lipid panel. Continue simvastatin 40 mg at bedtime. Alternative recommendations based upon LDL with goal less than 70. (5) Hypertension: Code(s): I10 - Essential (primary) hypertension Status: Acute Assessment and Plan: Fair control overall. Continue antihypertensives. (6) Hyperlipidemia: Code(s): E78.5 - Hyperlipidemia, unspecified Status: Acute Assessment and Plan: Continue simvastatin. Goal LDL less than 70. (7) Tobacco abuse: Code(s): Z72.0 - Tobacco use Status: Acute Assessment and Plan: Smoking cessation counseling performed extensively. Absolutely agree with pulmonology he must quit smoking in order to continue breathing. Subjective Date/time seen: Date of service: 12/31/20 10:56 Follow-up for COPD exacerbation, acute respiratory failure, CHF, elevated troponin No chest pain. Breathing improved although still quite short of breath sitti
[2020-12-31 11:33] LABS: Cholesterol 154 mg/dL (0-200); HDL Direct 53 mg/dL; Triglycerides 92 mg/dL (<150)
[2020-12-31 11:42] LABS: LDL Cholesterol Direct 81 mg/dL
[2020-12-31] MEDS: BUMETANIDE INJ 1 MG/4 ML VIAL 2 MG IV PUSH ×2 (15:25→20:27)
--- NOTE | 2020-12-31 16:26 | P.PNIM_ITS ---
Progress Note: A&P Assessment and Plan (1) COPD exacerbation: Code(s): J44.1 - Chronic obstructive pulmonary disease with (acute) exacerbation Status: Acute Assessment and Plan: * He has been started on scheduled bronchodilators. * No indication for antibiotics. * prednisone 40mg PO daily * Seems to be a mix of COPD and CHF exacerbation. * Will hold off on antibiotics for now * WBC are 12.9 probably related to steroid use * trend labs * Supplement oxygen * Wean oxygen to maintain a saturation of >90% * Pulmonology consulted thank you for your recommandations (2) Diastolic congestive heart failure: Code(s): I50.30 - Unspecified diastolic (congestive) heart failure Status: Acute Assessment and Plan: * Chest x-ray today shows Rizwana B lines and possible pulmonary edema. * Given his marked lower extremity edema and orthopnea, * diuresed with close monitoring of volume status and renal function. * IV furosemide 40mg PO BID, changed to PO lasix 40mg BID * gave 2mg IV bumex in place of lasix due to blood pressure * Santos myers * Cardiology consult thank you * Fluid restriction 1500ml daily (3) Elevated troponin: Code(s): R77.8 - Other specified abnormalities of plasma proteins Status: Acute Assessment and Plan: * He is not having chest pain and likely this is related to CHF though will trend troponins to peak. * Echo just done on 12/25/20-EF 50-55% with grade 1 diastolic dysfunction, limited showed a 60-65% * Cardiology consult thank you for recommendations (4) Hypertension: Code(s): I10 - Essential (primary) hypertension Status: Acute Assessment and Plan: * Current blood pressure is 106/62 * Blood pressures reviewed and they are stable. * Hold lisinopril for now due to hypotension (5) Benign prostatic hyperplasia: Code(s): N40.0 - Benign prostatic hyperplasia without lower urinary tract symptoms Status: Acute Assessment and Plan: Continue tamsulosin. (6) Hyperlipidemia: Code(s): E78.5 - Hyperlipidemia, unspecified Status: Acute Assessment and Plan: Continue statin and check LFTs. (7) Peripheral arterial disease: Code(s): I73.9 - Peripheral vascular disease, unspecified Status: Chronic Assessment and Plan: * Patient has two stents that were placed * No acute issues. Continue clopidogrel. (8) Anxiety: Code(s): F41.9 - Anxiety disorder, unspecified Status: Acute Assessment and Plan: * Patient on buspar at home and increased to 10mg * patient started on ativan 0.5mg PO Q6hr * Will talk to primary about start on SSRI (9) Acute and chronic respiratory failure: Code(s): J96.20 - Acute and chronic respiratory failure, unspecified whether with hypoxia or hypercapnia Status: Acute Assessment and Plan: * Patient does not use oxygen at home * 4 pack a day smoker down to 10 cigarettes per day * With the mix of COPD and CHF this is probably acute on chronic respiratory failure * home o2 eval Subjective Date/time seen: 12/31/20 15:59 Interval history: Patient is 65-year-old male with a past medical history of COPD, hypertension, anxiety who presented the hospital with shortness of breath. Patient is very agitated today and stated that he was ready to go home. However patient is short of breath even with a little bit of exertion of having conversation. P
--- NOTE | 2020-12-31 16:26 | PM.IMPN ---
Progress Note: A&P Assessment and Plan (1) COPD exacerbation: Code(s): J44.1 - Chronic obstructive pulmonary disease with (acute) exacerbation Status: Acute Assessment and Plan: He has been started on scheduled bronchodilators. No indication for antibiotics. prednisone 40mg PO daily Seems to be a mix of COPD and CHF exacerbation. Will hold off on antibiotics for now WBC are 12.9 probably related to steroid use trend labs Supplement oxygen Wean oxygen to maintain a saturation of >90% Pulmonology consulted thank you for your recommandations (2) Diastolic congestive heart failure: Code(s): I50.30 - Unspecified diastolic (congestive) heart failure Status: Acute Assessment and Plan: Chest x-ray today shows Rizwana B lines and possible pulmonary edema. Given his marked lower extremity edema and orthopnea, diuresed with close monitoring of volume status and renal function. IV furosemide 40mg PO BID, changed to PO lasix 40mg BID gave 2mg IV bumex in place of lasix due to blood pressure Santos myers Cardiology consult thank you Fluid restriction 1500ml daily (3) Elevated troponin: Code(s): R77.8 - Other specified abnormalities of plasma proteins Status: Acute Assessment and Plan: He is not having chest pain and likely this is related to CHF though will trend troponins to peak. Echo just done on 12/25/20-EF 50-55% with grade 1 diastolic dysfunction, limited showed a 60-65% Cardiology consult thank you for recommendations (4) Hypertension: Code(s): I10 - Essential (primary) hypertension Status: Acute Assessment and Plan: Current blood pressure is 106/62 Blood pressures reviewed and they are stable. Hold lisinopril for now due to hypotension (5) Benign prostatic hyperplasia: Code(s): N40.0 - Benign prostatic hyperplasia without lower urinary tract symptoms Status: Acute Assessment and Plan: Continue tamsulosin. (6) Hyperlipidemia: Code(s): E78.5 - Hyperlipidemia, unspecified Status: Acute Assessment and Plan: Continue statin and check LFTs. (7) Peripheral arterial disease: Code(s): I73.9 - Peripheral vascular disease, unspecified Status: Chronic Assessment and Plan: Patient has two stents that were placed No acute issues. Continue clopidogrel. (8) Anxiety: Code(s): F41.9 - Anxiety disorder, unspecified Status: Acute Assessment and Plan: Patient on buspar at home and increased to 10mg patient started on ativan 0.5mg PO Q6hr Will talk to primary about start on SSRI (9) Acute and chronic respiratory failure: Code(s): J96.20 - Acute and chronic respiratory failure, unspecified whether with hypoxia or hypercapnia Status: Acute Assessment and Plan: Patient does not use oxygen at home 4 pack a day smoker down to 10 cigarettes per day With the mix of COPD and CHF this is probably acute on chronic respiratory failure home o2 eval Subjective Date/time seen: 12/31/20 15:59 Interval history: Patient is 65-year-old male with a past medical history of COPD, hypertension, anxiety who presented the hospital with shortness of breath. Patient is very agitated today and stated that he was ready to go home. However patient is short of breath even with a little bit of exertion of having conversation. Patient denies having shortness of breath however you can see it with any short task. Patient stating that he is very anxious and gets anxiety just sitting in the room. I did put PT and OT for the patient and the patient he can walk in the halls. Patient stated that he would be more okay with staying if he could walk in the halls. I did explain to the patient the patient came with no oxygen and would like to see his oxygen requirements go down a little bit more. Patient denies chest pain, shortnes
--- NOTE | 2020-12-31 20:28 | PM.PNPUL ---
Progress Note: A&P Assessment and Plan (1) COPD exacerbation: Code(s): J44.1 - Chronic obstructive pulmonary disease with (acute) exacerbation Status: Acute Assessment and Plan: Acute exacerbation of COPD with probable chronic hypoxemia; looks like he has right heart failure which is acute on chronic and ongoing smoking. Echo did not mention his RVSP, or anything about right ventricle. May be hard to assess with such severe COPD; makes looking at hte heart through hyperinflated lungs difficult. Chart indicates that he has been treating himself with prednisone without a doctor's supervision. He describes getting worse after changing from Tudorza to Incruse. He appears to be at end stage of COPD, and can no longer smoke and still breathe. Continue to treat with steroids, bronchodilators, help him get through tobacco withdrawal and make plans to remain tobacco free. Evaluation for O2 tomorrow am. With smoking, pulse oximeter can show falsely elevated saturation as it measure the hemoglobin saturation and carboxyhemoglobin saturation from tobacco smoking. Has sputum production most days, and is a candidate for Daliresp ( roflumilast) which needs prior authorization. He has anxiety when he has difficulty breathing. This is common to see, and he is on buspirone 7.5 mg BID. I increased this to 10 mg BID and added Ativan 0.5 mg po Q 6 hours p.r.n. shortness of breath. He may be better managed with SSRI than benzodiazepine for controlling anxiety. Continue nebulized brochodilators and steroids. I spoke with Pako Rivera APRN, and we will aim to get him discharged tomorrow, with f/u in our office in the next 1-2 weeks. (2) Tobacco abuse: Code(s): Z72.0 - Tobacco use Status: Acute Assessment and Plan: duration of 50 years, up to 3 ppd, was at less than 0.5 ppd at this admission; has never had a tobacco cessation attempt before Nicotine patch, gum; he needs help while he is here to plan how he will stay off tobacco at discharge; this is critical to his survival (3) Right heart failure: Code(s): I50.810 - Right heart failure, unspecified Status: Acute Assessment and Plan: Acute on chronic; needs additional evaluation of sleep to assure that he does not have MIKE as a contributing factor; treatment will be aimed at tobacco cessation, management of COPD, cardiopulmonary rehab. (4) Hypoxemia: Code(s): R09.02 - Hypoxemia Status: Acute Assessment and Plan: Was not on supplemental O2 at admission; will need evaluation prior to discharge. Subjective Date/time seen: 12/31/20 20:28 Wants to go home; daughter in town from [facility], not as anxious today. Weaned to 1 L/min. ESTABLISHED: Kody Eden is a 65 year old man seen in follow up for acute hypoxemic respiratory failure, COPD exacerbation, extreme shortness of breath and anxiety, has COPD diagnosed 9 years ago, continues to smoke 8-10 cigarettes a day. He was seen in our office in October as a new patient, was followed by Dr Noble in the past. Due to increased anxiety and panic attacks, he was started on buspirone 7.5 mg BID. He smoked for 50 years, at most 3 ppd, and never has had a quit attempt. He was unable to continue to use Tudorza due to change in his insurance coverage, so was changed to Incruse which did not seem to be as effective. He has had intermittent coughing with sputum production, daily wheezing, and decreased exercise tolerance. He does not wake at night due to shortness of breath or wheezing, however only sleeps a few hours at a time before waking. He naps in the day. In September, he noticed increased lower extremity swelling and more shortness of breath with less activity, j
[2021-01-01] VITALS (15 sets, daily range): BP systolic 91–117; BP diastolic 51–69; PULSE 50–117; RESP 14–26; TEMP 36.1–36.4; O2SAT 87–96
[2021-01-01] MEDS: LORazepam (*CRX) 0.5 MG TABLET PO ×2 (02:33→08:59)
[2021-01-01] MEDS: IPRATROPIUM BR 0.02% INH SOLN 0.5 MG/2.5 ML VIAL INHALATION ×3 (03:43→14:38)
[2021-01-01] MEDS: LEVALBUTEROL NEB 1.25 MG/3 ML 0.63 MG INHALATION ×3 (03:43→14:37)
[2021-01-01 05:11] LABS: Hematocrit 44.9 % (42.0-52.0); Hemoglobin 14.8 g/dL (14.0-18.0); Mean Corpuscular Hemoglobin 33.4 pg (26-34); Mean Corpuscular Volume 101.4 fl (80-100); Mean Platelet Volume 9.7 fl (7.4-10.4); Platelet Count Result 299 k/mm3 (150-375); Red Blood Count 4.43 M/mm3 (4.6-6.20); Red Cell Distribution Width 14.6 % (11.5-14.5); White Blood Count 11.5 K/mm3 (4.5-10.0)
[2021-01-01 05:33] LABS: Alanine Aminotransferase 51 U/L (4-50); Albumin Level 3.4 g/dL (3.5-5.1); Alkaline Phosphatase 57 U/L (38-126); Anion Gap 8 mmol/L (8-16); Aspartate Amino Transferase 44 U/L (17-59); Bilirubin,Total 0.7 mg/dL (0.2-1.3); Blood Urea Nitrogen 39 mg/dL (9-20); Carbon Dioxide 30 mmol/L (22-30); Chloride 95 mmol/L (98-107); Estimated CRCL calculation 66 ml/min; Estimated Glomerular Filt Rate > 60; Glucose 123 mg/dL (65-110); Potassium 4.1 mmol/L (3.4-5.0); Sodium 133 mmol/L (137-145)
[2021-01-01] MEDS: cilostazoL 100 MG TABLET PO (05:44)
--- NOTE | 2021-01-01 07:45 | PC.NURSE ---
This patient, Kody Eden, was received from IMU on 01/01/21 at 0743. Patient/family oriented to unit policies and routines
--- NOTE | 2021-01-01 07:46 | PC.NURSE ---
This patient, Kody Eden, was transferred to [facility] on 01/01/21 at 0740. Personal belongings sent with patient. Report given to SEAN Jones. Appropriate documentation sent with patient.
--- NOTE | 2021-01-01 08:52 | PM.PNCARD ---
Progress Note: A&P Assessment and Plan (1) Elevated troponin: Code(s): R77.8 - Other specified abnormalities of plasma proteins <HELDER Navarrete - Last Filed: 01/01/21 10:16> Status: Acute <HELDER Navarrete - Last Filed: 01/01/21 10:16> Assessment and Plan: Mild troponin elevation with flat curve not consistent with acute coronary syndrome and/or plaque rupture but likely type 2 infarction. EF preserved moderate LVH. no clear anginal symptoms, no acute ischemic EKG changes at presentation. -given peripheral arterial disease status post intervention high likelihood concordance of coronary atherosclerosis. Discussed outpatient ischemic evaluation when stable. Patient agrees. -Patient should follow with Dr. Sierra as an outpatient for further guidance and recommendations in this regard. Patient verbalized understanding. <HELDER Navarrete - Last Filed: 01/01/21 10:16> (2) COPD exacerbation: Code(s): J44.1 - Chronic obstructive pulmonary disease with (acute) exacerbation <HELDER Navarrete - Last Filed: 01/01/21 10:16> Status: Acute <HELDER Navarrete - Last Filed: 01/01/21 10:16> Assessment and Plan: acute on chronic hypoxic respiratory failure. Severe COPD. Patient has been treating himself with prednisone for many years without doctor's orders. He says he is quitting smoking. Currently using nicotine patches and gum. -Dr. Desai following -Home O2 eval <HELDER Navarrete - Last Filed: 01/01/21 10:16> (3) Acute exacerbation of CHF (congestive heart failure): Code(s): I50.9 - Heart failure, unspecified <HELDER Navarrete - Last Filed: 01/01/21 10:16> Status: Acute <HELDER Navarrete - Last Filed: 01/01/21 10:16> Assessment and Plan: Moderate LVH By echocardiogram. Acute, new onset heart failure with preserved ejection fraction EF 60-65% On limited echo 12/31/2020, 50-55% 12/25/2020 echocardiogram. no aortic stenosis on echo 12/25/2020 previous notation of [id number] aortic stenosis 2017. Most likely secondary to hypoxic respiratory failure. No clear anginal symptoms although given PAD history and risk factors can't exclude underlying coronary artery disease. - Continue furosemide 40mg PO BID as home dose. - BMP in one week <HELDER Navarrete - Last Filed: 01/01/21 10:16> (4) Peripheral arterial disease: Code(s): I73.9 - Peripheral vascular disease, unspecified <HELDER Navarrete - Last Filed: 01/01/21 10:16> Status: Chronic <HELDER Navarrete - Last Filed: 01/01/21 10:16> Assessment and Plan: 04/13/2019 status post aortogram, left external iliac artery 9 x 40 mm Protege. stent placement, attempted left above knee popliteal arterial recanalization. Continue Cilostazol and Clopidogrel. Increased risk for coronary artery disease but no prior diagnosis. He follows with Dr. [facility] in this regard. Check lipid panel. Continue simvastatin 40 mg at bedtime. Alternative recommendations based upon LDL with goal less than 70. <HELDER Navarrete - Last Filed: 01/01/21 10:16> (5) Hypertension: Code(s): I10 - Essential (primary) hypertension <HELDER Navarrete - Last Filed: 01/01/21 10:16> Status: Acute <HELDER Navarrete - Last Filed: 01/01/21 10:16> Assessment and Plan: Fair control overall. Continue antihypertensives. <HELDER Navarrete - Last Filed: 01/01/21 10:16> (6) Hyperlipidemia: Code(s): E78.5 - Hyperlipidemia, unspecified <HELDER Navarrete - Last Filed: 01/01/21 10:16> Status: Acute <HELDER Navarrete - Last Filed: 01/01/21 10:16> Assessment and Plan: Continue simvastatin. Goal LDL less than 70. <HELDER Navarrete - Last Filed: 01/01/21 10:16> (7) Tobacco abuse: Code(s): Z72.0 - Tobac
--- NOTE | 2021-01-01 08:56 | WPDCDIQUERY2 ---
CDI Query Clarification Request -Pt with c/o shortness of breath -12/29 ABG's pH 7.474 pCO2 35.6 pO2 62.5 HCO3 25.6 O2 sats 93% on O2 at 2L -Pt placed on bipap 12/29 O2 has been weaned from 3L to 1L -Cardiology has documented acute on chronic respiratory failure -Pulmonary has documented acute hypoxemic respiratory failure Please clarify if acute, acute on chronic respiratory failure has been ruled in or ruled out. <Tamy Thomson RN - Last Filed: 01/01/21 09:03> acute on chronic respiratory failure has been ruled in <HELDER Alicia - Last Filed: 01/01/21 11:51>
[2021-01-01] MEDS: SIMVASTATIN 20 MG TABLET 40 MG PO (08:59)
[2021-01-01] MEDS: FAMOTIDINE 20 MG TABLET PO (09:00)
[2021-01-01] MEDS: FUROSEMIDE 40 MG TABLET PO (09:00)
[2021-01-01] MEDS: busPIRone HCL 10 MG TABLET PO (09:00)
[2021-01-01] MEDS: TAMSULOSIN HCL 0.4 MG CAPSULE PO (09:00)
[2021-01-01] MEDS: OPTI-GEN TAB 1 TABLET PO (09:00)
[2021-01-01] MEDS: CLOPIDOGREL BISULFATE 75 MG TABLET PO (09:00)
[2021-01-01] MEDS: predniSONE 20 MG TABLET 40 MG PO (09:00)
[2021-01-01] MEDS: NICOTINE (*PBKC) 21 MG PATCH 1 PATCH TRANSDERM (09:03)
--- NOTE | 2021-01-01 11:15 | HOMEO2EVAL ---
Evaluation was performed at [facility] Home Oxygen Evaluation RC: Home Oxygen (O2) Evaluation Start: 01/01/21 10:00 Freq: ONCE Status: Active Protocol: RPE Activity Type Activity Date Activity User E-Sign Co-Sign Detail Recorded Client Recorded Date Recorded By Document 01/01/21 10:30 [email or web address] [email or web address] 01/01/21 11:14 DJO Document 01/01/21 10:31 DJO [email or web address] 01/01/21 11:14 DJO Document 01/01/21 10:32 [email or web address] [email or web address] 01/01/21 11:14 DJO Document 01/01/21 10:35 [email or web address] [email or web address] 01/01/21 11:14 DJO Document 01/01/21 10:38 [email or web address] [email or web address] 01/01/21 11:14 DJO Document 01/01/21 10:45 [email or web address] [email or web address] 01/01/21 11:14 DJO 01/01/21 01/01/21 01/01/21 10:30 10:31 10:32 Home O2 Evaluation Test Phase Resting Resting Resting Oxygen Delivery Room Air Nasal Cannula Nasal Cannula Oxygen Flow Rate (L/min) 1 2 Pulse Oximetry (90-100 %) 87 L 87 L 90 Home Oxygen Evaluation Comments Treatment Charges O2 Evaluation - Inpatient 01/01/21 01/01/21 01/01/21 10:35 10:38 10:45 Home O2 Evaluation Test Phase Exercise Exercise Resting Oxygen Delivery Nasal Cannula Nasal Cannula Nasal Cannula Oxygen Flow Rate (L/min) 2 3 2 Pulse Oximetry (90-100 %) 87 L 90 92 Home Oxygen Evaluation Comments RESTING 2L AND 3L WITH ACTIVITY Treatment Charges
--- NOTE | 2021-01-01 12:05 | P.DS_ITS ---
DS: Admitting Diagnosis Admitting Diagnosis Clinical right heart failure and End stage COPD DS: Discharge Diagnosis Discharge Diagnosis (1) COPD exacerbation: Code(s): J44.1 - Chronic obstructive pulmonary disease with (acute) exacerbation Status: Acute Assessment and Plan: * He has been started on scheduled bronchodilators. * No indication for antibiotics. * prednisone 40mg PO daily * Seems to be a mix of COPD and CHF exacerbation. * Will hold off on antibiotics for now * WBC are 12.9 probably related to steroid use * trend labs * Supplement oxygen * Wean oxygen to maintain a saturation of >90% * Pulmonology consulted thank you for your recommandations (2) Diastolic congestive heart failure: Code(s): I50.30 - Unspecified diastolic (congestive) heart failure Status: Acute Assessment and Plan: * Chest x-ray today shows Rizwana B lines and possible pulmonary edema. * Given his marked lower extremity edema and orthopnea, * diuresed with close monitoring of volume status and renal function. * IV furosemide 40mg PO BID, changed to PO lasix 40mg BID * gave 2mg IV bumex in place of lasix due to blood pressure * Santos myers * Cardiology consult thank you * Fluid restriction 1500ml daily (3) Elevated troponin: Code(s): R77.8 - Other specified abnormalities of plasma proteins Status: Acute Assessment and Plan: * He is not having chest pain and likely this is related to CHF though will trend troponins to peak. * Echo just done on 12/25/20-EF 50-55% with grade 1 diastolic dysfunction, limited showed a 60-65% * Cardiology consult thank you for recommendations (4) Hypertension: Code(s): I10 - Essential (primary) hypertension Status: Acute Assessment and Plan: * Current blood pressure is 106/62 * Blood pressures reviewed and they are stable. * Hold lisinopril for now due to hypotension (5) Benign prostatic hyperplasia: Code(s): N40.0 - Benign prostatic hyperplasia without lower urinary tract symptoms Status: Acute Assessment and Plan: Continue tamsulosin. (6) Hyperlipidemia: Code(s): E78.5 - Hyperlipidemia, unspecified Status: Acute Assessment and Plan: Continue statin and check LFTs. (7) Peripheral arterial disease: Code(s): I73.9 - Peripheral vascular disease, unspecified Status: Chronic Assessment and Plan: * Patient has two stents that were placed * No acute issues. Continue clopidogrel. (8) Anxiety: Code(s): F41.9 - Anxiety disorder, unspecified Status: Acute Assessment and Plan: * Patient on buspar at home and increased to 10mg * patient started on ativan 0.5mg PO Q6hr * Will talk to primary about start on SSRI Zoloft 25 mg p.o. for the 1st 7 days then transition to 50 mg p.o. after will follow-up with primary about addition to medication (9) Acute and chronic respiratory failure: Code(s): J96.20 - Acute and chronic respiratory failure, unspecified whether with hypoxia or hypercapnia Status: Acute Assessment and Plan: * Patient does not use oxygen at home * 4 pack a day smoker down to 10 cigarettes per day * With the mix of COPD and CHF this is probably acute on chronic respiratory failure * home o2 eval DS: Summary Hospital Course Hospital Course: Patient is 65-year-old male with a past medical history of COPD, hypertension, anxiety who p
--- NOTE | 2021-01-01 12:05 | PM.DS ---
DS: Admitting Diagnosis Admitting Diagnosis Clinical right heart failure and End stage COPD DS: Discharge Diagnosis Discharge Diagnosis (1) COPD exacerbation: Code(s): J44.1 - Chronic obstructive pulmonary disease with (acute) exacerbation Status: Acute Assessment and Plan: He has been started on scheduled bronchodilators. No indication for antibiotics. prednisone 40mg PO daily Seems to be a mix of COPD and CHF exacerbation. Will hold off on antibiotics for now WBC are 12.9 probably related to steroid use trend labs Supplement oxygen Wean oxygen to maintain a saturation of >90% Pulmonology consulted thank you for your recommandations (2) Diastolic congestive heart failure: Code(s): I50.30 - Unspecified diastolic (congestive) heart failure Status: Acute Assessment and Plan: Chest x-ray today shows Rizwana B lines and possible pulmonary edema. Given his marked lower extremity edema and orthopnea, diuresed with close monitoring of volume status and renal function. IV furosemide 40mg PO BID, changed to PO lasix 40mg BID gave 2mg IV bumex in place of lasix due to blood pressure Santos myers Cardiology consult thank you Fluid restriction 1500ml daily (3) Elevated troponin: Code(s): R77.8 - Other specified abnormalities of plasma proteins Status: Acute Assessment and Plan: He is not having chest pain and likely this is related to CHF though will trend troponins to peak. Echo just done on 12/25/20-EF 50-55% with grade 1 diastolic dysfunction, limited showed a 60-65% Cardiology consult thank you for recommendations (4) Hypertension: Code(s): I10 - Essential (primary) hypertension Status: Acute Assessment and Plan: Current blood pressure is 106/62 Blood pressures reviewed and they are stable. Hold lisinopril for now due to hypotension (5) Benign prostatic hyperplasia: Code(s): N40.0 - Benign prostatic hyperplasia without lower urinary tract symptoms Status: Acute Assessment and Plan: Continue tamsulosin. (6) Hyperlipidemia: Code(s): E78.5 - Hyperlipidemia, unspecified Status: Acute Assessment and Plan: Continue statin and check LFTs. (7) Peripheral arterial disease: Code(s): I73.9 - Peripheral vascular disease, unspecified Status: Chronic Assessment and Plan: Patient has two stents that were placed No acute issues. Continue clopidogrel. (8) Anxiety: Code(s): F41.9 - Anxiety disorder, unspecified Status: Acute Assessment and Plan: Patient on buspar at home and increased to 10mg patient started on ativan 0.5mg PO Q6hr Will talk to primary about start on SSRI Zoloft 25 mg p.o. for the 1st 7 days then transition to 50 mg p.o. after will follow-up with primary about addition to medication (9) Acute and chronic respiratory failure: Code(s): J96.20 - Acute and chronic respiratory failure, unspecified whether with hypoxia or hypercapnia Status: Acute Assessment and Plan: Patient does not use oxygen at home 4 pack a day smoker down to 10 cigarettes per day With the mix of COPD and CHF this is probably acute on chronic respiratory failure home o2 eval DS: Summary Hospital Course Hospital Course: Patient is 65-year-old male with a past medical history of COPD, hypertension, anxiety who presented the hospital with shortness of breath. Patient was originally treated with a BiPAP to help maintain respiratory function. Patient was also diuresed with IV Lasix which were switched to Bumex. Patient's blood pressures been running on the softer side 90s to 100s systolically. Lisinopril has been discontinued this for. Cardiology has been consulted and gave recommendations to the patient and recommended the patient stay on 40 mg of Lasix daily. They would like to see the patient 4 weeks. Cardio
[2021-01-01] MEDS: SERTRALINE HCL 25 MG TABLET PO (12:49)
[2021-01-01] MEDS: NICOTINE (*PBKC) 4 MG GUM PO (12:58)
--- NOTE | 2021-01-01 15:15 | PM.PNPUL ---
Progress Note: A&P Assessment and Plan (1) COPD exacerbation: Code(s): J44.1 - Chronic obstructive pulmonary disease with (acute) exacerbation Status: Acute Assessment and Plan: Acute exacerbation of COPD with probable chronic hypoxemia; looks like he has right heart failure which is acute on chronic and ongoing smoking. Echo did not mention his RVSP, or anything about right ventricle. May be hard to assess with such severe COPD; makes looking at the heart through hyperinflated lungs difficult. Chart indicates that he has been treating himself with prednisone without a doctor's supervision. He describes getting worse after changing from Tudorza to Incruse. He appears to be at end stage of COPD, and can no longer smoke and still breathe. Continue to treat with steroids, bronchodilators, help him get through tobacco withdrawal and make plans to remain tobacco free. He is going home on 2 L at rest, 3 L with exertion. Smoking: pulse oximeter can show falsely elevated saturation as it measure the hemoglobin saturation and carboxyhemoglobin saturation from tobacco smoking. Has sputum production most days, and is a candidate for Daliresp ( roflumilast) which needs prior authorization. He has anxiety when he has difficulty breathing. This is common to see, and he is on buspirone increased to 10 mg BID and added Ativan 0.5 mg po Q 6 hours p.r.n. shortness of breath. Pako Rivera NP started [id number] mg a day. Has a lot of anxiety. Continue nebulized brochodilators and steroids. I spoke with Pako Rivera APRN, ok to go home 01/01; with f/u in our office in the next 1-2 weeks. (2) Tobacco abuse: Code(s): Z72.0 - Tobacco use Status: Acute Assessment and Plan: duration of 50 years, up to 3 ppd, was at less than 0.5 ppd at this admission; has never had a tobacco cessation attempt before Nicotine patch, gum; he needs help while he is here to plan how he will stay off tobacco at discharge; this is critical to his survival (3) Right heart failure: Code(s): I50.810 - Right heart failure, unspecified Status: Acute Assessment and Plan: Acute on chronic; needs additional evaluation of sleep to assure that he does not have MIKE as a contributing factor; treatment will be aimed at tobacco cessation, management of COPD, cardiopulmonary rehab. The ApneaLink was falsely negative as he was on )2 at 2 L/min. Needs to start on RA in sleep alb. (4) Hypoxemia: Code(s): R09.02 - Hypoxemia Status: Acute Assessment and Plan: Was not on supplemental O2 at admission; 2 L rest, 3 L exertion. Subjective Date/time seen: 01/01/21 15:[address] Sierra; the echo does not show enlarged right sided chambers, although the view was not optima due to emphysema. He can go home, has end stage COPD, not able to comment on MIKE as his ApneaLink was inaccurate due to using O2 which masked events. He does not have a PE. Home O2 evaluation 2 L/min at rest, 3 L/min with exertion. Kody Eden is a 65 year old man seen in follow up for acute hypoxemic respiratory failure, COPD exacerbation, extreme shortness of breath and anxiety, has COPD diagnosed 9 years ago, continues to smoke 8-10 cigarettes a day. He was seen in our office in October as a new patient, was followed by Dr Noble in the past. Due to increased anxiety and panic attacks, he was started on buspirone 7.5 mg BID. He smoked for 50 years, at most 3 ppd, and never has had a quit attempt. He was unable to continue to use Tudorza due to change in his insurance coverage, so was changed to Incruse which did not seem to be as effective. He has had intermittent coughing with sputum production, daily wheezing,
[2021-01-01] MEDS: LORATADINE/PSEUDOEPHEDRINE (*CRX) 10/240 MG TABLET ER 24 HR 1 TAB PO (15:45)
--- NOTE | 2021-01-01 15:45 | PCRCNOTE ---
Home o2 set up with [facility]. Tank in room and ready for discharge. RN aware
== END 2021-01-01 16:28 | disposition home or self-care (01) | DRG 190 ==
LOC: ANHED 11:23 → ANHIMU 15:56 → ANH2MED 01-01 12:21 → ANHIMU 01-05 15:31
PROVIDERS: Emergency Medicine Emergency Medical Services; Internal Medicine Cardiovascular Disease; Physician Assistant; Admitting Provider Student in an Organized Health Care Education/Training Program; Emergency Provider Emergency Medicine; PCP Family Medicine; Visit Provider Nurse Practitioner
DX: J44.1 Chronic obstructive pulmonary disease with (acute) exacerbation (principal); I50.31 Acute diastolic (congestive) heart failure; J96.21 Acute and chronic respiratory failure with hypoxia; F17.210 Nicotine dependence, cigarettes, uncomplicated; I11.0 Hypertensive heart disease with heart failure; R77.8 Other specified abnormalities of plasma proteins; N40.0 Benign prostatic hyperplasia without lower urinary tract symptoms; E78.5 Hyperlipidemia, unspecified; I73.9 Peripheral vascular disease, unspecified; F41.9 Anxiety disorder, unspecified; Z79.899 Other long term (current) drug therapy
CPT/HCPCS: 36415; 36600; 71045; 71046; 80048; 80053; 80061; 82375; 82805; 83050; 83735; 83880; 84443; 84484; 85025; 85027; 85380; 85610; 85730; 93005; 93308; 93970; 94002; 94003; 94618; 94640; 94762; 96374; 96375; 99285; A9270; C8924; J1940; J2060; J2930; J7512; Q9957

== ENCOUNTER → 2021-06-18 13:53 | Outpatient (CLI) | payer MEDICARE, OTHER, SELFPAY ==
--- NOTE | ~2021-06-18 | XR_ITS ---
XR lumbar spine 6V w bending DATE: 06/18/2021 14:51 INDICATION: Low back pain TECHNIQUE: AP, lateral, coned lateral lumbosacral views COMPARISON: None FINDINGS: There is prominent diffuse osteopenia. There is minimal levoscoliosis of the lumbar spine. There is mild degenerative disc disease at the lumbar spine. There is severe degenerative disc disease at L5-S1. There is grade 1 anterolisthesis at L4-5 due to degenerative change at the apophyseal joints. No spondylosis. Sacroiliac joints are intact. Vascular stent at left iliac area. IMPRESSION: Diffuse osteopenia Multi-level degenerative disc disease, severe at L5-S1 Grade 1 anterolisthesis at L4-5 Reviewed, dictated and finalized at location A. ING SUPERVISOR
== END ==
PROVIDERS: PCP Family Medicine; Visit Provider Family Medicine
DX: M54.50 Low back pain, unspecified (principal); M47.817 Spondylosis without myelopathy or radiculopathy, lumbosacral region
CPT/HCPCS: 72114

== ENCOUNTER 2021-08-10 11:32 | Inpatient (IN) | payer MEDICARE, OTHER, SELFPAY ==
[2021-08-10] VITALS (33 sets, daily range): BP systolic 88–135; BP diastolic 63–85; PULSE 80–145; RESP 10–28; TEMP 36.4–36.6; O2SAT 90–100; BMI 21.6
--- NOTE | ~2021-08-10 | XR_ITS ---
XR chest 2V 08/10/2021 12:14 Indication: Redness of breath. History of COPD. Procedure: 2 view chest Comparison: Comparison to multiple prior studies sequentially, with oldest reviewed study dated 12/31. Findings: Cardiomegaly. Bibasilar airspace disease. Small pleural effusions. No pneumothorax. No naomi a. There is atherosclerosis of the aorta. No acute osseous abnormality. Impression: 1: Bibasilar airspace disease may represent atelectasis or pneumonia. 2: Small pleural effusions. Reviewed, dictated and finalized at location A. Impression: 1: Bibasilar airspace disease may represent atelectasis or pneumonia. 2: Small pleural effusions.
--- NOTE | 2021-08-10 11:45 | ECG_ITS ---
Measurements Intervals [place] Rate: 129 P: [place]: 0 QRS: 25 QRSD: 93 T: 89 QT: 317 QTc: 465 Interpretive Statements MULTI FOCAL ATRIAL TACHYCARDIA POSSIBLE SEPTAL MYOCARDIAL INFARCTION , PROBABLY OLD [40+ ms Q WAVE IN V1/V2] ABNORMAL ECG COMPARED TO ECG 12/29/2020 09:00:40 NO SIGNIFICANT CHANGE Electronically Signed On 08-10-2021 15:46:21 CDT by Lalo Ferrer M.D.
[2021-08-10 12:03] LABS: Basophils Absolute Auto 0.1 K/mm3 (0.0-0.1); Basophils Percent Auto 0.6 % (0.2-1.2); Eosinophils Absolute Auto 0.1 K/mm3 (0-0.3); Eosinophils Percent Auto 0.9 % (0-4.4); Hematocrit 33.6 % (42.0-52.0); Hemoglobin 10.5 g/dL (14.0-18.0); Immature Granulocyte Absolute 0.03 K/mm3 (0.00-0.031); Immature Granulocyte Percent A 0.4 % (0-0.5); Mean Corpuscular HGB Conc 31.3 g/dl (32-36); Mean Corpuscular Hemoglobin 31.2 pg (26-34); Mean Corpuscular Volume 99.7 fl (80-100); Mean Platelet Volume 11.7 fl (7.4-10.4); Monocytes Absolute Auto 0.9 K/mm3 (0.1-0.6); Monocytes Percent Auto 10.6 % (2.6-8.5); Neutrophils Absolute Auto 6.3 K/mm3 (1.3-6.7); Neutrophils Percent Auto 74.5 % (45.5-73.1); Nucleated Red Blood Cells Perc 0.2 % (0.0-0.2); Platelet Count Result 203 k/mm3 (150-375); Red Blood Count 3.37 M/mm3 (4.6-6.20); White Blood Count 8.5 K/mm3 (4.5-10.0)
[2021-08-10 12:12] LABS: INR 1.2; Prothrombin Time 14.4 Seconds (11.1-14.7)
[2021-08-10 12:13] LABS: Partial Thromboplastin Time 32.1 SECONDS (22.3-36.8)
[2021-08-10 12:19] LABS: Alanine Aminotransferase 408 U/L (4-50); Albumin Level 3.2 g/dL (3.5-5.1); Alkaline Phosphatase 130 U/L (38-126); Anion Gap 3 mmol/L (8-16); Aspartate Amino Transferase 157 U/L (17-59); Bilirubin,Total 1.2 mg/dL (0.2-1.3); Blood Urea Nitrogen 27 mg/dL (9-20); Calcium 7.9 mg/dL (8.4-10.2); Carbon Dioxide 38 mmol/L (22-30); Chloride 87 mmol/L (98-107); Estimated CRCL calculation 70 ml/min; Estimated Glomerular Filt Rate > 60; Glucose 88 mg/dL (65-110); Lipase 74 U/L (23-300); Potassium 3.6 mmol/L (3.4-5.0); Sodium 128 mmol/L (137-145)
[2021-08-10 12:33] LABS: Troponin I 0.109 ng/mL (0.000-0.034)
--- NOTE | 2021-08-10 13:05 | ED.GENADULT ---
HPI - General Adult General Chief complaint: Shortness of Breath/Dyspnea Stated complaint: SOB Time Seen by Provider: 08/10/21 12:52 Source: patient and family Mode of arrival: ambulatory Limitations: no limitations History of Present Illness HPI narrative: Patient is 65 years old white male brought to the emergency room by his because of shortness of breath over the last 3 weeks and gradually getting worse. Patient reports a history of shortness of breath for the last 10 years secondary to COPD. Chronic oxygen by nasal cannula 4 L, history of COPD, congestive heart failure, quit smoking 5 months ago,. Patient denies any fever, chills, nausea, vomiting, weakness. Currently patient laying down in bed, asymptomatic. Awake, alert oriented x4. Monitor showing A. fib with RVR. Patient denies any chest pain, back pain or headache Related Data Home Medications Medication Instructions Recorded Confirmed cilostazol 100 mg tablet 100 mg PO BID 07/27/19 07/30/21 clopidogrel 75 mg tablet 75 mg PO DAILY 07/27/19 07/30/21 tamsulosin 0.4 mg capsule 0.4 mg PO DAILY cap 12/04/20 07/30/21 famotidine 20 mg PO BID 12/29/20 07/30/21 fish,bora,flax oils-om3,6,9no1 1 cap PO DAILY 12/29/20 07/30/21 [[place] 3-6-9 Complex] arpyxjuulyuf-qzalwgpx-ddvgsw 1 tablet PO DAILY 12/29/20 07/30/21 albuterol sulfate 2.5 mg INHALATION TID 07/30/21 07/30/21 budesonide-formoterol [Symbicort] 2 puff INHALATION BID 07/30/21 07/30/21 loratadine-pseudoephedrine 1 tablet PO Q12H 07/30/21 07/30/21 [Claritin-D 12 Hour] psyllium husk [Metamucil] 1 tbsp PO DAILY 07/30/21 07/30/21 Allergies Allergy/AdvReac Type Severity Reaction Status Date / Time aspirin AdvReac Intermediate Nausea and Verified 07/30/21 14:38 Vomiting codeine AdvReac Intermediate Nausea Verified 07/30/21 14:38 Review of Systems Review of Systems: CONSTITUTIONAL: Denies fever, chills, or sweats. EYES: Denies visual changes, redness, or discharge. ENT: Denies rhinorrhea, congestion, sore throat, or otalgia. CARDIOVASCULAR: Denies chest pain, palpitations, or edema. RESPIRATORY: dyspnea GASTROINTESTINAL: Denies abdominal pain, nausea, vomiting, or diarrhea. GENITOURINARY: Denies dysuria or hematuria. SKIN: Edema lower extremities MUSCULOSKELETAL: Denies back pain, joint pain, or myalgia. NEUROLOGIC: Denies headache, numbness, or weakness. PSYCHIATRIC: Denies anxiety or depression. FOR[facility]LY [facility] Past Medical History Medical History Benign prostatic hyperplasia Chronic obstructive pulmonary disease Diastolic congestive heart failure Echocardiogram on 12/25/2020 showed normal left ventricular systolic function with an EF of 50 to 55% and grade 1 diastolic dysfunction. Encounter for screening colonoscopy GERD (gastroesophageal reflux disease) Hyperlipidemia Hypertension Lumbar pain Peripheral arterial disease Status post left lower extremity thrombectomy and stent. Tobacco abuse Surgical History Surgical History History of arthroscopy of left knee History of vascular surgery Left lower extremity thrombectomy and stent. Family History Family History Mother Acute myocardial infarction, Onset Age: 74 Patient's mother is Family history of heart disease in male family member before age 55 Hypertension, Onset Age: 74 Father Cerebrovascular accident, Onset Age: 60 Patient's father is Family history of congestive heart failure, Onset Age: 60 Other Diabetes mellitus Family history of lung cancer Social History Social History Social History: The patient lives with his significant other of 25 years in [place]. He is retired and has no children. He reportedly smoked upwards of 4 packs of cigarettes a day though is down to 10 cigarettes a day m
[2021-08-10] MEDS: dilTIAZem HCl INJ 25 MG/5 ML VIAL 10 MG IV PUSH (13:10)
[2021-08-10 13:19] LABS: NT Pro B Type Natriuretic Pept 22600 pg/mL (5-100)
[2021-08-10 13:20] LABS: Base Excess ABG 10.3 mEq/l (+/-2.0); Fractional Inspired Oxygen 36 %; HCO3 ABG 35.5 mEq/l (22.0-26.0); Oxygen Content ABG 15.5 %vol (16.0-22.0); Oxyhemoglobin 94.9 % THb (90.0-100.0); PCO2 ABG 50.6 mmHg (35.0-45.0); PO2 FiO2 Ratio Arterial Blood 2.17 %; Total Hemoglobin 11.6 g/dL (12.0-18.0); pH ABG 7.464 (7.350-7.450)
[2021-08-10 13:21] LABS: Device NON-REBREATHER MASK; Modified Allen's Test Pass; Site Drawn RIGHT RADIAL
[2021-08-10] MEDS: ENOXAPARIN 80 MG/0.8 ML SYRINGE 70 MG SUB-Q (13:32)
--- NOTE | 2021-08-10 13:55 | PCRCNOTE ---
unable to obtain abg, notified
[2021-08-10] MEDS: DIGOXIN INJ 250 MCG/ML 2 ML AMP (*BKC) IV PUSH (14:11)
--- NOTE | 2021-08-10 14:15 | PM.IMHP ---
H&P: HPI History of Present Illness Date/Time: 08/10/21 14:15 Chief Complaint: Shortness of breath. Narrative: This is a 65-year-old male, former smoker, with chronic respiratory failure on home oxygen, chronic obstructive pulmonary disease, aortic valve stenosis, diastolic congestive heart failure, hypertension, and peripheral vascular disease who presented to the ED via EMS from home for evaluation of shortness of breath. His breathing is poor at baseline and he spends the majority of his time on his couch, where he sleeps. He has a urinal next to him that he is able to use and it sounds like he only gets up to use the restroom and that causes him to become quite winded. Over the past 3 weeks he has been increasingly short of breath and he has also developed increasing lower extremity edema in the same time frame with a 10 lb weight gain. His appetite has been poor and he has not been eating or drinking much though he tries to at least get in a couple of Boosts a day. Despite increasing his Lasix to twice a day and using his nebulizer 2 to 3 times a day, he continues to decline. He was given a nebulizer and magnesium sulfate in route to the hospital. Chest x-ray done on arrival showed bilateral airspace disease which may represent atelectasis or pneumonia as well as small pleural effusions. His proBNP was markedly elevated and his troponin was also elevated and he is being admitted in this setting. At the time my evaluation he is feeling a bit better after receiving a nebulizer treatment. He was not given Lasix in the emergency department due to soft blood pressures in the 90 systolic however patient tells me that is right about his baseline. He denies fever, chills, and sweats. He has not had a cough. He also denies chest pain, pleuritic pain, and palpitations though he is tachycardic with telemetry showing multifocal atrial tachycardia with rates in the 110s to 130s. Review of Systems Review of Systems: Twelve systems were reviewed. No sinus congestion, rhinorrhea, otalgia, or odynophagia. He denies sick contacts. No vomiting, diarrhea, or dysuria. No history of venous thromboembolism. Except as documented, all other systems were reviewed and are negative. [facility] Past Medical History Medical History (Updated 08/10/21 @ 21:45 by Orquidea Torres PA-C) Benign prostatic hyperplasia Chronic obstructive pulmonary disease Chronic respiratory failure with hypoxia, on home oxygen therapy Diastolic congestive heart failure Echocardiogram on 12/25/2020 showed normal left ventricular systolic function with an EF of 50 to 55% and grade 1 diastolic dysfunction. Gastroesophageal reflux disease Hyperlipidemia Hypertension Peripheral arterial disease Status post left lower extremity thrombectomy and stent. Tobacco abuse Quit in fall 2020. Surgical History Surgical History (Updated 08/10/21 @ 21:29 by Orquidea Torres PA-C) History of arthroscopy of left knee History of colonoscopy History of vascular surgery Left lower extremity thrombectomy and stent. Family History Family History Mother Acute myocardial infarction, Onset Age: 74 Patient's mother is Family history of heart disease in male family member before age 55 Hypertension, Onset Age: 74 Father Cerebrovascular accident, Onset Age: 60 Patient's father is Family history of congestive heart failure, Onset Age: 60 Other Diabetes mellitus Family history of lung cancer Social History Social History (Updated 08/10/21 @ 21:30 by Orquidea Torres PA-C) Social History: The patient lives with his significant other of 25 years in [place]. He is retired and has no children. He reportedly smoked upwards of 4 packs of cigarettes a day and he quit in fall 2020. No alcohol or illicit substance abuse. His significant other, Ban Atkins, is his surrogate decision maker. Smoking status:
--- NOTE | 2021-08-10 14:30 | PC.NURSE ---
RT called for treatment.
[2021-08-10 14:32] LABS: SARS-CoV-2 RNA PCR Negative
--- NOTE | 2021-08-10 15:52 | ADMGEN ---
This patient, Kody Eden, was admitted to IMU Room 206-01. Patient/family oriented to hospital policies and general routines including ID bracelet, bed and alarms, visiting hours, pain management, procedures, bathroom and other care routines, personal items, smoking policy, room service/diet, and visiting hours. Information on how to activate the Rapid Response Team has been discussed. Patient/Family are encouraged to report perceived risks to care and to ask questions if they do not understand what they are told or what they should do.
[2021-08-10 16:00] LABS: Troponin I 0.115 ng/mL (0.000-0.034)
--- NOTE | 2021-08-10 16:36 | PCRCNOTE ---
Ordered Bipap stat. upon arrival pt isnt having trouble breathing. Pt refused bipap and Orquidea stated that was fine and if he became short of breath to wear it. Pt was sating 97 on 4 LPM on home o2
--- NOTE | 2021-08-10 17:46 | PM.CNCAR ---
Assessment and Plan Additional Plan 65-year-old man with what appears to be severe COPD by exam and by chest x-ray. Longstanding cigarette smoking fortunately he quit about 6 months ago. He presents with shortness of breath, some volume overload and multi focal atrial tachycardia, not atrial fibrillation. Echocardiogram 6 months ago did not show any LV systolic dysfunction. I would treat him with loop diuretics for his edema and treat him for his COPD exacerbation. He does not need treatment for atrial fibrillation at this time. Lalo Ferrer MD [facility] History of Present Illness History of Present Illness Consult date/time: 08/10/21 17:46 Consult reason: atrial fibrillation Reason For Visit: New onset of A fib w RVR/COPD/Elevated troponin Narrative: This is a 65-year-old man that I am seeing this evening at the request of the emergency room staff was saw him earlier today because of atrial fibrillation and also because of elevation of his troponin level. The patient is not known to have atrial fibrillation prior to this he does have a well documented history of severe COPD with long-standing cigarette smoking. Fortunately he was able to quit smoking about 6 months ago. The patient has been experiencing worsening trouble with shortness of breath with physical activity about the house to the point where now he could barely walk from room to room or climb a flight of stairs so he called 911 to be brought to the emergency room earlier this afternoon. He does not describe any sense of chest pain pressure or heaviness he does not have any sense of palpitations tachycardia orthopnea or poor PND. He has occasional hospital admissions with COPD exacerbation and he thought this was a typical instance of this. He does have some weight gain and bipedal edema which interestingly he does state is typical of his COPD exacerbation. His last hospitalization for this was in December of 2020 and my partner saw him in consultation at that time. An echocardiogram at that time did not show any LV systolic dysfunction he was felt to have some diastolic noncompliance. In the emergency room today he was tachycardic and his rhythm was irregular in the felt to be in atrial fibrillation. He had some orders for digoxin placed on his chart and for this reason I have been asked to see him in consultation. Troponin level is also modestly a out of normal range. The patient's 12 lead ECG demonstrates that this gentleman has multifocal atrial tachycardia, not atrial fibrillation. I have discussed this with the hospitalist team on the floor as well. Review of Systems Constitutional: Constitutional: Reports fatigue and Reports weakness Eyes: Eyes: Reports no additional eye complaints ENT: Reports system reviewed and no additional complaints, except as documented Cardiovascular: Cardiovascular: Reports as per HPI Respiratory: Respiratory: Reports dyspnea Gastrointestinal: Gastrointestinal: Reports no additional gastrointestinal complaints Musculoskeletal: Musculoskeletal: Reports no additional musculoskeletal complaints Integumentary/Breasts: Skin/Breast: Reports system reviewed and no additional complaints, except as docu Neurologic: Reports system reviewed and no additional complaints, except as documented Endocrine: Endocrine: Reports no additional endocrine complaints Hematologic/Lymphatic: Hematologic/Lymphatic: Reports no additional hematologic/lymphatic complaints Allergic/Immunologic: Allergic/Immunologic: Reports no additional allergic/immunologic complaints PMFSH Past Medical History Medical History Benign prostatic hyperplasia Chronic obstructive pulmonary disease Diastolic congestive heart failure Echocardiogram on 12/25/2020 showed normal left ventricular systolic function with an EF of 50 to 55% and grade 1 diastolic dysfunction. Encounter for screening colonoscopy GERD (gastroesophageal reflux
[2021-08-10] MEDS: ALBUTEROL SULFATE NEB 2.5 MG/0.5 ML INH 5 MG INHALATION (20:18)
[2021-08-10] MEDS: IPRATROPIUM BR 0.02% INH SOLN 0.5 MG/2.5 ML VIAL INHALATION (20:18)
[2021-08-10] MEDS: FUROSEMIDE INJ 40 MG/4 ML VIAL 20 MG IV PUSH (21:00)
[2021-08-10] MEDS: methylPREDNISolone SOD SUCC 125 MG VIAL 80 MG IV PUSH (23:08)
[2021-08-11] VITALS (22 sets, daily range): BP systolic 84–106; BP diastolic 59–77; PULSE 106–152; RESP 16–24; TEMP 36.4–36.8; O2SAT 96–100
[2021-08-11] MEDS: IPRATROPIUM BR 0.02% INH SOLN 0.5 MG/2.5 ML VIAL INHALATION ×5 (01:19→20:09)
[2021-08-11 05:31] LABS: Hematocrit 33.1 % (42.0-52.0); Hemoglobin 10.7 g/dL (14.0-18.0); Mean Corpuscular HGB Conc 32.3 g/dl (32-36); Mean Corpuscular Hemoglobin 30.4 pg (26-34); Mean Platelet Volume 11.9 fl (7.4-10.4); Platelet Count Result 194 k/mm3 (150-375); Red Blood Count 3.52 M/mm3 (4.6-6.20); Red Cell Distribution Width 15.2 % (11.5-14.5); White Blood Count 5.3 K/mm3 (4.5-10.0)
[2021-08-11 05:43] LABS: Alanine Aminotransferase 321 U/L (4-50); Alkaline Phosphatase 106 U/L (38-126); Anion Gap 3 mmol/L (8-16); Aspartate Amino Transferase 110 U/L (17-59); Bilirubin,Total 1.6 mg/dL (0.2-1.3); Blood Urea Nitrogen 22 mg/dL (9-20); Calcium 7.9 mg/dL (8.4-10.2); Carbon Dioxide 39 mmol/L (22-30); Chloride 88 mmol/L (98-107); Estimated CRCL calculation 72 ml/min; Estimated Glomerular Filt Rate > 60; Glucose 119 mg/dL (65-110); Magnesium 2.1 mg/dL (1.6-2.3); Potassium 3.7 mmol/L (3.4-5.0); Sodium 130 mmol/L (137-145)
[2021-08-11 06:13] LABS: Procalcitonin 0.1 ng/mL
[2021-08-11 06:27] LABS: Hepatitis B Surface Antigen Negative (Negative)
[2021-08-11 06:33] LABS: HAV RESULT Negative (Negative); Hepatitis B Core IgM Result Negative (Negative)
[2021-08-11 06:45] LABS: Hepatitis C Virus Antibody Negative (Negative)
[2021-08-11] MEDS: SIMVASTATIN 20 MG TABLET 40 MG PO (07:41)
[2021-08-11] MEDS: cilostazoL 100 MG TABLET PO ×2 (07:42→17:50)
[2021-08-11] MEDS: busPIRone HCL 5 MG TABLET 15 MG PO ×2 (07:43→17:50)
[2021-08-11] MEDS: predniSONE 20 MG TABLET 40 MG PO (07:43)
[2021-08-11] MEDS: FAMOTIDINE 20 MG TABLET PO ×2 (07:45→20:12)
[2021-08-11] MEDS: ENOXAPARIN 40 MG/0.4 ML SYRINGE SUB-Q (07:45)
[2021-08-11] MEDS: OPTI-GEN TAB 1 TABLET PO (07:46)
[2021-08-11] MEDS: PSYLLIUM POWDER PACKET 1 PACKET PO (07:46)
[2021-08-11] MEDS: FUROSEMIDE INJ 40 MG/4 ML VIAL 20 MG IV PUSH ×2 (07:46→17:50)
[2021-08-11] MEDS: TAMSULOSIN HCL 0.4 MG CAPSULE PO (07:47)
[2021-08-11] MEDS: SERTRALINE HCL 50 MG TABLET 100 MG PO (07:47)
[2021-08-11] MEDS: CLOPIDOGREL BISULFATE 75 MG TABLET PO (07:57)
[2021-08-11] MEDS: FLUTICASONE/SALMETEROL 45-21 MCG INHALER 1 PUFF 2 PUFF INHALATION ×2 (08:24→20:09)
--- NOTE | 2021-08-11 08:46 | PC.NURSE ---
6040-pt refused abdominal ultrasound and BLE venous doppler. Pt stated, he is checked twice a year by his PCP. [id number]-called dr. Ernandez to update to refusal of ultrasounds.
--- NOTE | 2021-08-11 12:38 | PM.PNCARD ---
Progress Note: A&P Assessment and Plan (1) Acute and chronic respiratory failure: Qualifiers: Respiratory failure complication: hypoxia Qualified Code(s): J96.21 - Acute and chronic respiratory failure with hypoxia Code(s): J96.20 - Acute and chronic respiratory failure, unspecified whether with hypoxia or hypercapnia Status: Acute Assessment and Plan: Longstanding history of COPD, enters the hospital with chief complaint of shortness of breath and evidence of COPD exacerbation. Being treated with steroids, nebs. Improving. Management per hospitalist (2) Acute exacerbation of congestive heart failure: Code(s): I50.9 - Heart failure, unspecified Status: Acute Assessment and Plan: Significant bilateral pedal and pretibial edema. BNP 22,6000 at presentation. Echocardiogram from December 2020 shows normal LV systolic function but he does have some diastolic dysfunction. Continue with IV diuresis. (3) Transaminitis: Code(s): R74.01 - Elevation of levels of liver transaminase levels Status: Acute Assessment and Plan: Probably secondary to passive hepatic congestion from CHF. Liver enzymes improving today. (4) COPD exacerbation: Code(s): J44.1 - Chronic obstructive pulmonary disease with (acute) exacerbation Status: Acute Assessment and Plan: As above. (5) Multifocal atrial tachycardia: Code(s): I47.1 - Supraventricular tachycardia Status: Acute Assessment and Plan: Patient is currently asymptomatic. Suspect with improvement of his respiratory status he will become less tachycardic. He does not require anticoagulation for this. (6) Elevated troponin: Code(s): R77.8 - Other specified abnormalities of plasma proteins Status: Acute Assessment and Plan: Mildly elevated and flat. Probably related to hypoxia/demand ischemia. Subjective Date/time seen: 08/11/21 12:38 Cardiology follow up Patient is feeling significantly better today. He is much less short of breath. Still has significant LE edema. Denies any chest pain or palpitations. Review of Systems Constitutional: Constitutional: Reports fatigue and Reports weakness Eyes: Eyes: Reports no additional eye complaints ENT: Reports system reviewed and no additional complaints, except as documented Cardiovascular: Cardiovascular: Reports as per HPI and Reports dyspnea Respiratory: Respiratory: Reports dyspnea Gastrointestinal: Gastrointestinal: Reports no additional gastrointestinal complaints Musculoskeletal: Musculoskeletal: Reports no additional musculoskeletal complaints Integumentary/Breasts: Skin/Breast: Reports system reviewed and no additional complaints, except as docu Neurologic: Reports system reviewed and no additional complaints, except as documented and Reports weakness Endocrine: Endocrine: Reports no additional endocrine complaints and Reports fatigue Hematologic/Lymphatic: Hematologic/Lymphatic: Reports no additional hematologic/lymphatic complaints Allergic/Immunologic: Allergic/Immunologic: Reports no additional allergic/immunologic complaints Exam Const: General: no acute distress HENMT: Mouth: Yes dry mucous membranes Eyes: Sclera: sclerae normal Neck: Neck: supple and no JVD Resp: Effort & Inspection: normal respiratory effort Auscultation: not clear to auscultation bilaterally, crackles (bases) bilateral and diminished lung sounds Cardio: Rate: tachycardic Other: Irregularly irregular rhythm GI: Auscultation: normal bowel sounds Skin: General skin exam: normal color Neuro: Cognition (Neuro): normal cognition Extrem: Other: Moderate soft pitting edema bilateral edema Objective Data Vital Signs Vital Signs: Vital Signs - 24 hr 08/10/21 12:47 08/10/21 13:07 08/10/21 13:15 Temperature Pulse Rate 114 H 130 H 114 H Respiratory Rate 20 15 14 Blood Pressure Pulse Oximetry
[2021-08-11] MEDS: OMEGA 3 POLYUNSAT FATTY ACIDS 1 GM CAP PO (12:46)
--- NOTE | 2021-08-11 15:33 | PM.IMPN ---
Progress Note: A&P Assessment and Plan (1) Acute exacerbation of congestive heart failure: Code(s): I50.9 - Heart failure, unspecified Status: Acute Assessment and Plan: Pt is iv lasix, continue to diuresis with IV lasix lungs are better but legs are edematous (2) COPD exacerbation: Code(s): J44.1 - Chronic obstructive pulmonary disease with (acute) exacerbation Status: Acute Assessment and Plan: Continue albuterol and oral steroids (3) Elevated troponin: Code(s): R77.8 - Other specified abnormalities of plasma proteins Status: Acute Assessment and Plan: The patient is not having any chest pain and likely his troponins are elevated in the setting of respiratory distress, congestive heart failure, and tachycardia. Continue to trend to peak. Cardiology consulted. (4) Transaminitis: Code(s): R74.01 - Elevation of levels of liver transaminase levels Status: Acute Assessment and Plan: continue to watch LFTs. Check a right upper quadrant ultrasound and hepatitis panel (5) Chronic respiratory failure with hypoxia, on home oxygen therapy: Code(s): J96.11 - Chronic respiratory failure with hypoxia; Z99.81 - Dependence on supplemental oxygen Status: Acute Assessment and Plan: He is at his home oxygen requirement. (6) Hyponatremia: Code(s): E87.1 - Hypo-osmolality and hyponatremia Status: Acute Assessment and Plan: Secondary to volume overload. Sodium should improve with diuresis. (7) Peripheral arterial disease: Code(s): I73.9 - Peripheral vascular disease, unspecified Status: Chronic Assessment and Plan: No acute issues. Continue clopidogrel and cilostazol. (8) Multifocal atrial tachycardia: Code(s): I47.1 - Supraventricular tachycardia Status: Acute Assessment and Plan: This should improve with treatment of his COPD and CHF. Hr is 120-140 today continue to watch watch electrolytes Subjective Date/time seen: 08/11/21 15:33 Interval history: 5-year-old male, former smoker, with chronic respiratory failure on home oxygen, chronic obstructive pulmonary disease, aortic valve stenosis, diastolic congestive heart failure, hypertension, and peripheral vascular disease who presented to the ED via EMS from home for evaluation of shortness of breath. pt came in with sob and bilateral leg edema. Pt refusing echo. Long discussion with and patient by the bedside they want to talk to the palliative care team. Review of Systems Review of Systems: All systems reviewed & are unremarkable except as noted in HPI and below Exam Const: General: in distress and other (Chronically unwell ) Resp: Effort & Inspection: no respiratory distress Auscultation: no rhonchi and no wheezes Cardio: Rate: regular rate Rhythm: regular rhythm GI: Inspection: normal to inspection GI Palp: No abdominal tenderness, No Guarding due to palpation present (GI) and No Hepatomegaly present Auscultation: normal bowel sounds Neuro: General: oriented to person Extrem: General: other (BL leg edema 3+ edema ) Objective Data Vital Signs Vital Signs: Vital Signs - 24 hr 08/10/21 16:00 08/10/21 16:18 08/10/21 16:32 Temperature 36.4 C L 36.4 C Pulse Rate 138 H 80 Respiratory Rate 28 H 16 Blood Pressure 104/63 Pulse Oximetry 93 94 97 08/10/21 17:00 08/10/21 17:55 08/10/21 19:57 Temperature 36.6 C 36.6 C Pulse Rate 113 H 128 H 113 H Respiratory Rate 16 20 Blood Pressure 91/67 L 100/67 Pulse Oximetry 97 97 08/10/21 20:00 08/10/21 20:18 08/10/21 20:26 Temperature Pulse Rate 110 H 97 97 Respiratory Rate 20 18 Blood Pressure Pulse Oximetry 97 97 08/10/21 20:30 08/10/21 22:00 08/10/21 23:36 Temperature 36.6 C Pulse Rate 108 H 120 H 119 H Respiratory Rate 18 20 Blood Pressure 135/75 Pulse Oximetry 98 08/11/21 00:00 08/11/21
[2021-08-11] MEDS: LORATADINE 10 MG TABLET PO (17:07)
--- NOTE | 2021-08-11 20:19 | PCRCNOTE ---
Pt refuses NIV. Pt and nurse both advised to call Respiratory if pt needs to go on NIV.
--- NOTE | 2021-08-11 23:49 | PC.NURSE ---
pavan camp is aware of the increased pvc's and low blood pressure. patient is sitting on side of bed and c/o:leg cramps. pavan is aware and stat labs are ordered.
[2021-08-12] VITALS (21 sets, daily range): BP systolic 96–111; BP diastolic 62–78; PULSE 57–155; RESP 16–96; TEMP 36–36.6; O2SAT 93–98
[2021-08-12 00:15] LABS: Anion Gap 6 mmol/L (8-16); Blood Urea Nitrogen 27 mg/dL (9-20); Calcium 8.5 mg/dL (8.4-10.2); Carbon Dioxide 37 mmol/L (22-30); Chloride 88 mmol/L (98-107); Estimated CRCL calculation 65 ml/min; Estimated Glomerular Filt Rate > 60; Glucose 137 mg/dL (65-110); Magnesium 2.1 mg/dL (1.6-2.3); Sodium 131 mmol/L (137-145)
[2021-08-12] MEDS: IPRATROPIUM BR 0.02% INH SOLN 0.5 MG/2.5 ML VIAL INHALATION ×4 (02:16→20:26)
[2021-08-12] MEDS: FAMOTIDINE 20 MG TABLET PO ×2 (08:37→21:25)
[2021-08-12] MEDS: CLOPIDOGREL BISULFATE 75 MG TABLET PO (08:37)
[2021-08-12] MEDS: TAMSULOSIN HCL 0.4 MG CAPSULE PO (08:37)
[2021-08-12] MEDS: busPIRone HCL 5 MG TABLET 15 MG PO ×2 (08:37→17:52)
[2021-08-12] MEDS: ENOXAPARIN 40 MG/0.4 ML SYRINGE SUB-Q (08:37)
[2021-08-12] MEDS: OPTI-GEN TAB 1 TABLET PO (08:37)
[2021-08-12] MEDS: SIMVASTATIN 20 MG TABLET 40 MG PO (08:38)
[2021-08-12] MEDS: predniSONE 20 MG TABLET 40 MG PO (08:38)
[2021-08-12] MEDS: cilostazoL 100 MG TABLET PO ×2 (08:38→17:52)
[2021-08-12] MEDS: SERTRALINE HCL 50 MG TABLET 100 MG PO (08:38)
[2021-08-12] MEDS: LORATADINE 10 MG TABLET PO ×2 (08:38→17:52)
[2021-08-12] MEDS: FUROSEMIDE INJ 40 MG/4 ML VIAL 20 MG IV PUSH ×2 (08:38→17:52)
[2021-08-12] MEDS: PSYLLIUM POWDER PACKET 1 PACKET PO (08:39)
[2021-08-12] MEDS: FLUTICASONE/SALMETEROL 45-21 MCG INHALER 1 PUFF 2 PUFF INHALATION ×2 (09:12→20:26)
--- NOTE | 2021-08-12 11:05 | PM.PNCARD ---
Progress Note: A&P Assessment and Plan (1) Acute and chronic respiratory failure: Qualifiers: Respiratory failure complication: hypoxia Qualified Code(s): J96.21 - Acute and chronic respiratory failure with hypoxia Code(s): J96.20 - Acute and chronic respiratory failure, unspecified whether with hypoxia or hypercapnia Status: Acute Assessment and Plan: Longstanding history of COPD, enters the hospital with chief complaint of shortness of breath and evidence of COPD exacerbation. Being treated with steroids, nebs. Improving. Management per hospitalist (2) Acute exacerbation of congestive heart failure: Code(s): I50.9 - Heart failure, unspecified Status: Acute Assessment and Plan: Significant bilateral pedal and pretibial edema. BNP 22,6000 at presentation. Echocardiogram from December 2020 shows normal LV systolic function but he does have some diastolic dysfunction. Continue with IV diuresis. No changes to his regimen (3) Transaminitis: Code(s): R74.01 - Elevation of levels of liver transaminase levels Status: Acute Assessment and Plan: Probably secondary to passive hepatic congestion from CHF. Liver enzymes improving today. (4) COPD exacerbation: Code(s): J44.1 - Chronic obstructive pulmonary disease with (acute) exacerbation Status: Acute Assessment and Plan: As above. (5) Multifocal atrial tachycardia: Code(s): I47.1 - Supraventricular tachycardia Status: Acute Assessment and Plan: Patient is currently asymptomatic. Suspect with improvement of his respiratory status he will become less tachycardic. He does not require anticoagulation for this. (6) Elevated troponin: Code(s): R77.8 - Other specified abnormalities of plasma proteins Status: Acute Assessment and Plan: Mildly elevated and flat. Probably related to hypoxia/demand ischemia. Subjective Date/time seen: 08/12/21 11:05 Interval history: 65-year-old male, former smoker, with chronic respiratory failure on home oxygen, chronic obstructive pulmonary disease, aortic valve stenosis, diastolic congestive heart failure, hypertension, and peripheral vascular disease who presented to the ED via EMS from home for evaluation of shortness of breath. pt came in with sob and bilateral leg edema. Pt refusing echo. Long discussion with and patient by the bedside they want to talk to the palliative care team. Date of service 08/12/2021: Still has swelling. No chest pain. On chronic oxygen. Review of Systems Constitutional: Constitutional: Reports fatigue and Reports weakness Eyes: Eyes: Reports no additional eye complaints ENT: Reports system reviewed and no additional complaints, except as documented Cardiovascular: Cardiovascular: Reports as per HPI and Reports dyspnea Respiratory: Respiratory: Reports dyspnea Gastrointestinal: Gastrointestinal: Reports no additional gastrointestinal complaints Musculoskeletal: Musculoskeletal: Reports no additional musculoskeletal complaints Integumentary/Breasts: Skin/Breast: Reports system reviewed and no additional complaints, except as docu Neurologic: Reports system reviewed and no additional complaints, except as documented and Reports weakness Endocrine: Endocrine: Reports no additional endocrine complaints and Reports fatigue Hematologic/Lymphatic: Hematologic/Lymphatic: Reports no additional hematologic/lymphatic complaints Allergic/Immunologic: Allergic/Immunologic: Reports no additional allergic/immunologic complaints Exam Const: General: no acute distress Other: Thin chronically ill rather cachectic looking man head of the bed elevated about 30? HENMT: Mouth: Yes dry mucous membranes Eyes: Sclera: sclerae normal Neck: Neck: supple and no JVD Resp: Effort & Inspection: normal respiratory effort Auscultation: not clear to auscultation bilaterally, crackles (bases) bilatera
--- NOTE | 2021-08-12 13:08 | PM.IMPN ---
Progress Note: A&P Assessment and Plan (1) Acute exacerbation of congestive heart failure: Code(s): I50.9 - Heart failure, unspecified Status: Acute Assessment and Plan: Pt is iv lasix, continue to diuresis with IV lasix lungs are better but legs are edematous. Pt not wanting echo this admission. Pt seen by cardiology (2) COPD exacerbation: Code(s): J44.1 - Chronic obstructive pulmonary disease with (acute) exacerbation Status: Acute Assessment and Plan: Continue albuterol and oral steroids (3) Elevated troponin: Code(s): R77.8 - Other specified abnormalities of plasma proteins Status: Acute Assessment and Plan: The patient is not having any chest pain and likely his troponins are elevated in the setting of respiratory distress, congestive heart failure, and tachycardia. Cardiology consulted. Tachycardia appears more multifocal atrial tachycardia. elevated trop secondary to CHf excerbation (4) Transaminitis: Code(s): R74.01 - Elevation of levels of liver transaminase levels Status: Acute Assessment and Plan: Continue to watch LFTs. Check a right upper quadrant ultrasound and hepatitis panel (5) Chronic respiratory failure with hypoxia, on home oxygen therapy: Code(s): J96.11 - Chronic respiratory failure with hypoxia; Z99.81 - Dependence on supplemental oxygen Status: Acute Assessment and Plan: He is at his home oxygen requirement.history of severe COPD long history of tobacco abuse (6) Hyponatremia: Code(s): E87.1 - Hypo-osmolality and hyponatremia Status: Acute Assessment and Plan: sodium is 131 continue to watch (7) Peripheral arterial disease: Code(s): I73.9 - Peripheral vascular disease, unspecified Status: Chronic Assessment and Plan: No acute issues. Continue clopidogrel and cilostazol. (8) Multifocal atrial tachycardia: Code(s): I47.1 - Supraventricular tachycardia Status: Acute Assessment and Plan: This should improve with treatment of his COPD and CHF. Hr is 120-140 today continue to watch watch electrolytes Subjective Date/time seen: 08/12/21 13:08 Interval history: 65-year-old male, former smoker, with chronic respiratory failure on home oxygen, chronic obstructive pulmonary disease, aortic valve stenosis, diastolic congestive heart failure, hypertension, and peripheral vascular disease who presented to the ED via EMS from home for evaluation of shortness of breath. pt came in with sob and bilateral leg edema. Pt refusing echo. Long discussion with and patient by the bedside they want to go home with palliative care team. Pt requesting discharge as soon as possible possibly tomorrow. Review of Systems Review of Systems: All systems reviewed & are unremarkable except as noted in HPI and below Exam Const: General: in distress and other (Chronically unwell ) Orientation/consciousness: oriented to person Resp: Effort & Inspection: no respiratory distress Auscultation: no rhonchi and no wheezes Cardio: Rate: regular rate Rhythm: regular rhythm GI: Inspection: normal to inspection Auscultation: normal bowel sounds Neuro: General: oriented to person Extrem: General: other (BL leg edema 2 + ) Objective Data Vital Signs Vital Signs: Vital Signs - 24 hr 08/11/21 14:00 08/11/21 14:08 08/11/21 16:00 Temperature 36.4 C L Pulse Rate 115 H 119 H 152 H Respiratory Rate 20 20 18 Blood Pressure 93/69 L Pulse Oximetry 96 08/11/21 17:46 08/11/21 19:31 08/11/21 20:00 Temperature 36.4 C Pulse Rate 131 H 118 H 107 H Respiratory Rate 20 18 Blood Pressure 98/77 L Pulse Oximetry 100 96 08/11/21 20:08 08/11/21 20:18 08/11/21 22:00 Temperature Pulse Rate 114 H 120 H 141 H Respiratory Rate 18 18 Blood Pressure Pulse Oximetry 96 08/11/21 23:34 08/12/21 00:00 08/12/21 02:00 [place]
[2021-08-12] MEDS: METOPROLOL TARTRATE INJ 5 MG/5 ML VIAL 2.5 MG IV PUSH (19:32)
--- NOTE | 2021-08-12 20:26 | PCRCNOTE ---
Meds entered manually. Scanner not working.
[2021-08-13] VITALS (11 sets, daily range): BP systolic 95–112; BP diastolic 76–85; PULSE 105–123; RESP 15–21; TEMP 36.6; O2SAT 93–99
[2021-08-13] MEDS: IPRATROPIUM BR 0.02% INH SOLN 0.5 MG/2.5 ML VIAL INHALATION ×2 (02:09→08:39)
[2021-08-13] MEDS: LORATADINE 10 MG TABLET PO (08:05)
[2021-08-13] MEDS: PSYLLIUM POWDER PACKET 1 PACKET PO (08:05)
[2021-08-13] MEDS: FUROSEMIDE INJ 40 MG/4 ML VIAL 20 MG IV PUSH ×2 (08:06→10:03)
[2021-08-13] MEDS: cilostazoL 100 MG TABLET PO (08:06)
[2021-08-13] MEDS: SIMVASTATIN 20 MG TABLET 40 MG PO (08:06)
[2021-08-13] MEDS: ENOXAPARIN 40 MG/0.4 ML SYRINGE SUB-Q (08:06)
[2021-08-13] MEDS: CLOPIDOGREL BISULFATE 75 MG TABLET PO (08:06)
[2021-08-13] MEDS: TAMSULOSIN HCL 0.4 MG CAPSULE PO (08:06)
[2021-08-13] MEDS: busPIRone HCL 5 MG TABLET 15 MG PO (08:06)
[2021-08-13] MEDS: predniSONE 20 MG TABLET 40 MG PO (08:06)
[2021-08-13] MEDS: OPTI-GEN TAB 1 TABLET PO (08:07)
[2021-08-13] MEDS: FAMOTIDINE 20 MG TABLET PO (08:07)
[2021-08-13] MEDS: SERTRALINE HCL 50 MG TABLET 100 MG PO (08:07)
[2021-08-13] MEDS: FLUTICASONE/SALMETEROL 45-21 MCG INHALER 1 PUFF 2 PUFF INHALATION (08:39)
[2021-08-13 09:22] LABS: Blood Urea Nitrogen 30 mg/dL (9-20); Calcium 8.7 mg/dL (8.4-10.2); Carbon Dioxide > 40 mmol/L (22-30); Chloride 89 mmol/L (98-107); Estimated CRCL calculation 62 ml/min; Estimated Glomerular Filt Rate > 60; Glucose 109 mg/dL (65-110); Magnesium 2.1 mg/dL (1.6-2.3); Potassium 3.8 mmol/L (3.4-5.0); Sodium 134 mmol/L (137-145)
[2021-08-13 09:24] LABS: Alanine Aminotransferase 242 U/L (4-50); Alkaline Phosphatase 97 U/L (38-126); Aspartate Amino Transferase 70 U/L (17-59)
--- NOTE | 2021-08-13 09:43 | PM.PNCARD ---
Progress Note: A&P Assessment and Plan (1) Acute and chronic respiratory failure: Qualifiers: Respiratory failure complication: hypoxia Qualified Code(s): J96.21 - Acute and chronic respiratory failure with hypoxia Code(s): J96.20 - Acute and chronic respiratory failure, unspecified whether with hypoxia or hypercapnia Status: Acute Assessment and Plan: Longstanding history of COPD, enters the hospital with chief complaint of shortness of breath and evidence of COPD exacerbation. Being treated with steroids, nebs. Improving. Management per hospitalist (2) Acute exacerbation of congestive heart failure: Code(s): I50.9 - Heart failure, unspecified Status: Acute Assessment and Plan: Significant bilateral pedal and pretibial edema. BNP 22,6000 at presentation. Echocardiogram from December 2020 shows normal LV systolic function but he does have some diastolic dysfunction. Will give additional 20 mg IV furosemide x1 now. Potassium chloride 40 mEq p.o. x1. (3) Transaminitis: Code(s): R74.01 - Elevation of levels of liver transaminase levels Status: Acute Assessment and Plan: Probably secondary to passive hepatic congestion from CHF. Liver enzymes improving today. (4) COPD exacerbation: Code(s): J44.1 - Chronic obstructive pulmonary disease with (acute) exacerbation Status: Acute Assessment and Plan: As above. (5) Multifocal atrial tachycardia: Code(s): I47.1 - Supraventricular tachycardia Status: Acute Assessment and Plan: Patient is currently asymptomatic. Suspect with improvement of his respiratory status he will become less tachycardic. He does not require anticoagulation for this. (6) Elevated troponin: Code(s): R77.8 - Other specified abnormalities of plasma proteins Status: Acute Assessment and Plan: Mildly elevated and flat. Probably related to hypoxia/demand ischemia. Subjective Date/time seen: 08/13/21 09:43 Interval history: 65-year-old male, former smoker, with chronic respiratory failure on home oxygen, chronic obstructive pulmonary disease, aortic valve stenosis, diastolic congestive heart failure, hypertension, and peripheral vascular disease who presented to the ED via EMS from home for evaluation of shortness of breath. pt came in with sob and bilateral leg edema. Pt refusing echo. Long discussion with and patient by the bedside they want to talk to the palliative care team. Date of service 08/12/2021: Still has swelling. No chest pain. On chronic oxygen. Date of service 08/13/2021: Edema still present. No chest pain. States that he feels ?pretty good today ?. Review of Systems Constitutional: Constitutional: Reports fatigue and Reports weakness Eyes: Eyes: Reports no additional eye complaints ENT: Reports system reviewed and no additional complaints, except as documented Cardiovascular: Cardiovascular: Reports as per HPI and Reports dyspnea Respiratory: Respiratory: Reports dyspnea Gastrointestinal: Gastrointestinal: Reports no additional gastrointestinal complaints Musculoskeletal: Musculoskeletal: Reports no additional musculoskeletal complaints Integumentary/Breasts: Skin/Breast: Reports system reviewed and no additional complaints, except as docu Neurologic: Reports system reviewed and no additional complaints, except as documented and Reports weakness Endocrine: Endocrine: Reports no additional endocrine complaints and Reports fatigue Hematologic/Lymphatic: Hematologic/Lymphatic: Reports no additional hematologic/lymphatic complaints Allergic/Immunologic: Allergic/Immunologic: Reports no additional allergic/immunologic complaints Exam Const: General: no acute distress Other: Thin chronically ill rather cachectic looking man head of the bed elevated about 30? HENMT: Mouth: Yes dry mucous membranes Eyes: Sclera: sclerae normal Neck: Neck: supple
[2021-08-13] MEDS: POTASSIUM CHLORIDE 20 MEQ TABLET 40 MEQ PO (10:02)
--- NOTE | 2021-08-13 11:31 | PM.DS ---
DS: Admitting Diagnosis Discharge Date 08/13/2021 Admitting Diagnosis Shortness of breath. DS: Discharge Diagnosis Discharge Diagnosis (1) Acute exacerbation of congestive heart failure: Code(s): I50.9 - Heart failure, unspecified Status: Acute Assessment and Plan: Pt received diuresis with IV lasix lungs are better but legs are better. Pt not wanting echo this admission. Pt seen by cardiology (2) COPD exacerbation: Code(s): J44.1 - Chronic obstructive pulmonary disease with (acute) exacerbation Status: Acute Assessment and Plan: Continue albuterol and oral steroids (3) Elevated troponin: Code(s): R77.8 - Other specified abnormalities of plasma proteins Status: Acute Assessment and Plan: The patient is not having any chest pain and likely his troponins are elevated in the setting of respiratory distress, congestive heart failure, and tachycardia. Cardiology consulted. Tachycardia appears more multifocal atrial tachycardia. elevated trop secondary to CHf excerbation (4) Transaminitis: Code(s): R74.01 - Elevation of levels of liver transaminase levels Status: Acute Assessment and Plan: Continue to watch LFTs. Hep panel is negative. Pt not wanting to have RUQ scan. (5) Chronic respiratory failure with hypoxia, on home oxygen therapy: Code(s): J96.11 - Chronic respiratory failure with hypoxia; Z99.81 - Dependence on supplemental oxygen Status: Acute Assessment and Plan: He is at his home oxygen requirement.history of severe COPD long history of tobacco abuse. PT wants to return home with palliative care. (6) Hyponatremia: Code(s): E87.1 - Hypo-osmolality and hyponatremia Status: Acute Assessment and Plan: Sodium is 134 better today pt is stable for discharge (7) Peripheral arterial disease: Code(s): I73.9 - Peripheral vascular disease, unspecified Status: Chronic Assessment and Plan: No acute issues. Continue clopidogrel and cilostazol. (8) Multifocal atrial tachycardia: Code(s): I47.1 - Supraventricular tachycardia Status: Acute Assessment and Plan: This should improve with treatment of his COPD and CHF. Hr is 120-140 today continue to watch MAT no specific treatment started as per cardiology if COPD improves tachycardia improves DS: Summary Hospital Course Hospital Course: 65-year-old male, former smoker, with chronic respiratory failure on home oxygen, end stage chronic obstructive pulmonary disease, aortic valve stenosis, diastolic congestive heart failure, hypertension, and peripheral vascular disease who presented to the ED via EMS from home for evaluation of shortness of breath. pt came in with sob and bilateral leg edema. Pt refusing echo. Long discussion with and patient by the bedside they want to go home with palliative care team. Pt requesting discharge as soon as possible possibly tomorrow. Pt uses oxygen at home. And will continue with his 3-4 liters continuous oxygen. Pt has quit smoking but was a heavy smoker in the past. Time Spent with Patient Time attestation: Total time spent providing and/or coordinating discharge services:45 minutes on day of discharge Exam Const: General: in distress and other (Chronically unwell ) Orientation/consciousness: oriented to person Resp: Effort & Inspection: no respiratory distress Auscultation: no rhonchi and no wheezes Cardio: Rate: regular rate Rhythm: regular rhythm GI: Inspection: normal to inspection Auscultation: normal bowel sounds Neuro: General: oriented to person Extrem: General: other (BL leg edema 2 + ) DS: Data Data Completed and Pending Labs on day of discharge: Labs from last 24 hours 08/13/21 08/13/21 09:00 09:00 Sodium 134 L Potassium 3.8 Chloride 89 L Carbon Dioxide > 40 H Anion Gap BUN 30 H Creatinine 1.00 Estim Creat Clear C
== END 2021-08-13 12:00 | disposition home health service (06) | DRG 189 ==
LOC: ANHED 13:51 → ANHIMU 14:55 → ANHICU 08-13 10:21 → ANHIMU 08-14 10:07
PROVIDERS: Emergency Medicine; Physician Assistant; Admitting Provider Family Medicine; Emergency Provider Emergency Medicine; PCP Family Medicine; Visit Provider Family Medicine
DX: J96.21 Acute and chronic respiratory failure with hypoxia (principal); I50.33 Acute on chronic diastolic (congestive) heart failure; J44.1 Chronic obstructive pulmonary disease with (acute) exacerbation; I47.1 Supraventricular tachycardia; E87.1 Hypo-osmolality and hyponatremia; I11.0 Hypertensive heart disease with heart failure; Z20.822 Contact with and (suspected) exposure to COVID-19; R77.8 Other specified abnormalities of plasma proteins; R74.01 Elevation of levels of liver transaminase levels; R60.0 Localized edema; R63.5 Abnormal weight gain; E78.5 Hyperlipidemia, unspecified; F12.90 Cannabis use, unspecified, uncomplicated; I35.0 Nonrheumatic aortic (valve) stenosis; I73.9 Peripheral vascular disease, unspecified; K21.9 Gastro-esophageal reflux disease without esophagitis; N40.0 Benign prostatic hyperplasia without lower urinary tract symptoms; Z87.891 Personal history of nicotine dependence; Z96.652 Presence of left artificial knee joint; Z99.81 Dependence on supplemental oxygen; Z95.820 Peripheral vascular angioplasty status with implants and grafts; Z86.718 Personal history of other venous thrombosis and embolism; Z79.02 Long term (current) use of antithrombotics/antiplatelets
CPT/HCPCS: 36415; 36600; 71046; 80048; 80053; 80074; 80076; 82805; 83690; 83735; 83880; 84075; 84145; 84443; 84450; 84460; 84484; 85025; 85027; 85610; 85730; 93005; 94640; 96372; 96374; 96375; 96376; 97110; 97161; 97166; 97530; 97535; 99285; A9270; C9803; G0378; J1160; J1650; J1940; J2930; J7512; U0003; U0005